=== PATIENT | female | born 2000 | race Caucasian/White ===

== ENCOUNTER → 2018-11-10 11:59 | Outpatient (CLI) | payer OTHER, SELFPAY ==
[2018-11-10 12:25] LABS: Basophils % 0.6 % (0.1-2.0); Eosinophils # 0.1 K/mm3 (0.0-0.4); Eosinophils % 0.7 % (0.1-12.0); Hematocrit 46.9 % (37.0-47.0); Hemoglobin 15.2 g/dL (12.2-16.2); Lymphocytes # 1.9 K/mm3 (0.7-4.5); Lymphocytes % 27.7 % (10-50); Mean Corpuscular HGB Conc 32.5 g/dL (31.8-35.4); Mean Corpuscular Hemoglobin 29.1 pg (27.0-31.2); Mean Corpuscular Volume 89.7 fl (81-99); Mean Platelet Volume 7.7 fl (7.4-10.4); Monocytes # 0.3 K/mm3 (0.1-1.0); Monocytes % 3.6 % (1.7-9.3); Neutrophils # 4.7 K/mm3 (1.8-7.8); Neutrophils % 67.5 % (37.0-80.0); Platelet Count 338 K/mm3 (142-424); Red Blood Count 5.23 M/mm3 (4.20-5.40); Red Cell Distribution Width 12.7 % (11.5-17.5); White Blood Count 6.9 K/mm3 (4.5-13.0)
[2018-11-10 15:34] LABS: HCG,Quantitative 1079 mIU/mL
[2018-11-12 07:20] LABS: HIV Screen 4th Generation wRfx Non Reactive (Non Reactive)
[2018-11-12 22:26] LABS: Hepatitis B Surface Antigen Negative (Negative); Hepatitis C Antibody <0.1 s/co ratio (0.0-0.9); Rapid Plasma Reagin Ab Titer Non Reactive (NonRea<1:1)
[2018-11-12 22:27] LABS: Rubella Antibodies, IgG 2.11 index (Immune >0.99)
== END ==
PROVIDERS: Visit Provider Nurse Practitioner Obstetrics & Gynecology
DX: Z34.90 Encounter for supervision of normal pregnancy, unspecified, unspecified trimester (principal)
CPT/HCPCS: 36415; 84702; 85025; 86592; 86703; 86762; 86850; 87340; 87380; G0432

== ENCOUNTER → 2018-11-16 12:44 | Outpatient (CLI) | payer OTHER, SELFPAY ==
--- NOTE | 2018-11-16 12:47 | US_ITS ---
PROCEDURE: US OB TRANSVAGINAL CLINICAL INDICATION: US OB Dates COMPARISON: No exams were available for comparison TECHNIQUE: FINDINGS: There is an intrauterine gestational sac present and a yolk sac noted but no obvious pole. It may be too early to see a pole. No adnexal mass or cul-de-sac fluid. IMPRESSION: Intrauterine gestational sac with yolk sac but no obvious pole. Suggest follow-up ultrasound and correlation with serum beta HCG Dictated by: Devang Roy MD 11/16/2018 18:05 <Electronically signed by Devang Roy MD in [facility]> 11/16/2018 18:05
[2018-11-16 15:02] LABS: HCG,Quantitative 11843 mIU/mL
== END ==
PROVIDERS: PCP Internal Medicine Adolescent Medicine; Visit Provider Nurse Practitioner Obstetrics & Gynecology
DX: O26.841 Uterine size-date discrepancy, first trimester (principal); Z34.90 Encounter for supervision of normal pregnancy, unspecified, unspecified trimester
CPT/HCPCS: 36415; 76817; 84702

== ENCOUNTER → 2018-12-08 17:21 | Outpatient (CLI) | payer OTHER, SELFPAY ==
[2018-12-13 07:07] LABS: Neisseria gonorrhoeae, NAA Negative (Negative)
== END ==
PROVIDERS: Visit Provider Nurse Practitioner Obstetrics & Gynecology
DX: Z34.90 Encounter for supervision of normal pregnancy, unspecified, unspecified trimester (principal); Z3A.08 8 weeks gestation of pregnancy
CPT/HCPCS: 87491; 87591

== ENCOUNTER → 2019-03-02 12:48 | Outpatient (CLI) | payer OTHER, SELFPAY ==
--- NOTE | 2019-03-02 12:48 | US_ITS ---
PROCEDURE: US OB /MATERNAL DETAIL CLINICAL INDICATION: US OB Complete COMPARISON: US OB TRANSVAGINAL from 11/16/2018 FINDINGS: There is a single live fetus which is in cephalic presentation. heart and body motion noted. The cervix is closed at 3 cm. Placenta is posterior and grade 1. Average appearing amount of amniotic fluid. Complete survey performed and was unremarkable on the submitted images as in PACS. No discrete anomalies identified on survey imaging by technologist. Active fetus. Three-vessel cord with satisfactory umbilical cord insertion. 4- chamber heart noted. Echogenic foci are present in the heart which are nonspecific. Survey of brain & ventricles Unremarkable. Face and neck survey unremarkable. Diaphragm and chest views unremarkable. Abdomen: Both kidneys noted and unremarkable. Stomach noted and satisfactory. Spine: Survey of the spine satisfactory with no anomalies identified nor imaged. Both arms and legs noted. Amniotic Fluid: Adequate. Maternal adnexa: No significant findings. Measurements: Average ultrasound age 20weeks 5days. Gestational Age 20 weeks 0 days Estimated due date by ultrasound age 0507/15/2019. Estimated weight 370.1ggrams. BPD = 21 weeks/0 BPD 21 weeks 0 days, OFD 21 weeks 0 days, HC 20 weeks 2 days, AC 20 weeks 6 days, FL 20 weeks 5 days, cerebellum 21 weeks 2 days, humerus 20 weeks 4 days. Heart rate is 139 beats per minute. Growth percentile is 83 percent HC/AC is 1.14 CI is 0.79 FL/BPD is 0.69 FL/AC is 0.22 IMPRESSION: Live IUP at 20 weeks 5 days in cephalic presentation. All parameters correlate with no obvious anomalies. Nonspecific echogenic foci noted in the heart. Dictated by: Devang Roy MD 03/02/2019 14:43 Electronically signed by Devang Roy MD in [facility] 03/02/2019 14:43
== END ==
PROVIDERS: PCP Nurse Practitioner Family; Visit Provider Nurse Practitioner Obstetrics & Gynecology
DX: Z36.0 Encounter for antenatal screening for chromosomal anomalies (principal)
CPT/HCPCS: 76811

== ENCOUNTER → 2019-04-20 09:55 | Outpatient (CLI) | payer OTHER, SELFPAY ==
[2019-04-20 11:02] LABS: Glucose,Fasting 91 mg/dL (60-105)
[2019-04-20 11:38] LABS: Glucose 1 Hour 153 mg/dL (74-106)
== END ==
PROVIDERS: Visit Provider Nurse Practitioner Obstetrics & Gynecology
DX: Z34.90 Encounter for supervision of normal pregnancy, unspecified, unspecified trimester (principal); Z13.1 Encounter for screening for diabetes mellitus
CPT/HCPCS: 36415; 82951

== ENCOUNTER → 2019-04-26 10:59 | Outpatient (CLI) | payer OTHER, SELFPAY ==
[2019-04-26 11:41] LABS: Glucose,Fasting 92 mg/dL (60-105)
[2019-04-26 13:22] LABS: Glucose 1 Hour 148 mg/dL (74-106)
[2019-04-26 14:04] LABS: Glucose 2 Hour 138 mg/dL (74-106)
[2019-04-26 15:19] LABS: Glucose 3 Hour 125 mg/dL (74-106)
== END ==
PROVIDERS: Visit Provider Nurse Practitioner Obstetrics & Gynecology
DX: Z34.90 Encounter for supervision of normal pregnancy, unspecified, unspecified trimester (principal)
CPT/HCPCS: 36415; 82951

== ENCOUNTER → 2019-06-06 10:10 | Outpatient (CLI) | payer OTHER, SELFPAY ==
--- NOTE | 2019-06-06 10:10 | US_ITS ---
PROCEDURE: US OB BIOPHYSICAL PROFILE CLINICAL INDICATION: SGA, Look at Baby's heart Echo gen foci TECHNIQUE: FINDINGS: The following parameters are obtained: Average ultrasound age is Average 34weeks Estimated due date by ultrasound is 07/18/2019. Estimated weight is 2,315g. This is 50th percentile BPD: 34 weeks 1 day OFD: 34 weeks 0 days HC: 34 weeks 2 days AC: 34 weeks 2 days FL: 33 weeks 5 days heart rate: 134bpm bpm. HC/AC: 1 Cephalic index: 0.79 FL/BPD: 0.77 FL/AC: 0.22 Amniotic fluid index: 11.42cm Qualitative AFV: 2 breathing movements: 2 Gross body movements: 2 Tone: 2 Biophysical profile score: 8 There was previously noted echogenic foci within the left ventricle. This is once again noted and is nonspecific. No other anomalies are demonstrated. The placenta is posterior in implantation and is grade 1. The cervix is closed and measures 4 cm transabdominal IMPRESSION: Live IUP with an average ultrasound age of 34 weeks. All parameters correlate. Biophysical profile is 8 of 8 with normal amniotic fluid index. Echogenic focus once again noted in the left ventricle nonspecific. Dictated by: Devang Roy MD 06/06/2019 13:04 Electronically signed by Devang Roy MD in [facility] 06/06/2019 13:04
== END ==
PROVIDERS: PCP Nurse Practitioner Family; Visit Provider Nurse Practitioner Obstetrics & Gynecology
DX: Z34.90 Encounter for supervision of normal pregnancy, unspecified, unspecified trimester (principal)
CPT/HCPCS: 76816; 76819

== ENCOUNTER → 2019-07-05 16:16 | Outpatient (CLI) | payer OTHER, SELFPAY | PROVIDERS: Visit Provider Nurse Practitioner Obstetrics & Gynecology | DX: Z34.90 Encounter for supervision of normal pregnancy, unspecified, unspecified trimester (principal) | CPT/HCPCS: 86403 ==

== ENCOUNTER 2019-07-06 02:21 | Outpatient (CLI) | payer OTHER, SELFPAY ==
[2019-07-06 02:48] VITALS: BMI 22.8
[2019-07-06 02:51] VITALS: BP 125/90; PULSE 101; RESP 18; TEMP 36.7; O2SAT 96; BMI 22.8
[2019-07-06 02:54] LABS: Microscopic, Urine URINE MICROSCOPIC (MICROSCOPIC)
[2019-07-06 02:58] LABS: Appearance,Urine CLEAR (Clear); Blood, Urine 1+ (Negative); Color,Urine YELLOW (Yellow); Glucose,Urine (UA) Negative (Negative); Ketones,Urine TRACE (Negative); Leukocyte Esterase,Urine Negative (Negative); Nitrate,Urine Negative (Negative); Protein,Urine 1+ (Negative); Specific Gravity, Urine >= 1.030 (1.005-1.030); Urobilinogen,Urine 0.2 EU/dl (0.2)
[2019-07-06 03:06] LABS: Fetal Membrane Rupture (Rapid) Negative (Negative)
[2019-07-06 03:09] LABS: Barbiturates Screen,Urine Negative ng/ml (<200)
[2019-07-06 03:10] LABS: Benzodiazepines Screen,Urine Negative ng/ml (<200)
[2019-07-06 03:11] LABS: Amphetamine/Metha Screen,Urine Negative ng/ml (<1000); Cocaine Screen,Urine Negative ng/ml (<300)
[2019-07-06 03:12] LABS: Methadone Screen,Urine Negative ng/ml (<300)
[2019-07-06 03:13] LABS: Cannabinoid Screen,Urine Negative ng/ml (<50); Phencyclidine Screen,Urine Negative ng/ml (<25)
[2019-07-06 03:14] LABS: Opiate Screen,Urine Negative ng/ml (<300)
[2019-07-06 03:18] LABS: Bilirubin,Urine Negative (Negative)
[2019-07-06 03:19] LABS: Bacteria,Urine 1+ /lpf; Calcium Oxalate Crystals,Urine 1+ /lpf; Mucus,Urine 1+ /lpf
== END 2019-07-06 04:11 | disposition home or self-care (01) ==
LOC: OBOUT 02:23 → OB 02:30
PROVIDERS: PCP Nurse Practitioner Family; Visit Provider Nurse Practitioner Obstetrics & Gynecology
DX: O60.03 Preterm labor without delivery, third trimester (principal); Z3A.38 38 weeks gestation of pregnancy
CPT/HCPCS: 59025; 80305; 81001; 84112; 96360; 96365; G0463

== ENCOUNTER 2019-07-06 08:18 | Outpatient (CLI) | payer OTHER, SELFPAY ==
[2019-07-06 08:27] VITALS: BMI 23.2
[2019-07-06 08:54] VITALS: BP 124/81; PULSE 79; RESP 20; TEMP 36.8; O2SAT 100; BMI 23.2
--- NOTE | 2019-07-06 09:59 | HMH.ACPN2 ---
Internal Medicine - PN: Subj *Date: 07/06/19 *Time: 09:59 Interval history: She complains of some irregular contractions. They are coming every 5 to 6 minutes. They are quite painful. She was in last night with the same thing. She actually had thought her membranes had ruptured. AmniSure at that time was negative. Her nonstress test is reactive and she is having fairly strong irregular contractions. Exam Vital signs and Labs for Last 24 Hours: Temp Pulse Resp BP Pulse Ox 98.3 F 79 20 124/81 100 07/06/19 08:54 07/06/19 08:54 07/06/19 08:54 07/06/19 08:54 07/06/19 08:54 I & O for Last 24 hours: Intake & Output 07/03/19 07/04/19 07/05/19 07/06/19 11:59 11:59 11:59 11:59 Weight 127 lb - *Routine HEENT Exam Head: Present: normocephalic Eye: Present: EOMI, PERRL ENT: Present: mucous membranes moist Assessment and Plan (1) False labor after 37 completed weeks of gestation Current visit: Yes Status: Acute Category: Medical Code(s): O47.1 - False labor at or after 37 completed weeks of gestation - Assessment and plan all Dx Assessment and Plan for all problems:: She is having contractions every 5 to 6 minutes. They are quite strong. She is quite uncomfortable. Her nonstress test is reactive. Her cervix is 2 cm 75% and station -2. This has not changed. We will go ahead and give her some fluids as well as Brethine. We will also give her a shot of Stadol to help with her discomfort. We will plan to send her home later this morning.
== END 2019-07-06 10:28 | disposition home or self-care (01) ==
LOC: RAD 08:19 → OB 08:19
PROVIDERS: PCP Nurse Practitioner Family; Visit Provider Nurse Practitioner Obstetrics & Gynecology
DX: O60.03 Preterm labor without delivery, third trimester (principal); Z3A.38 38 weeks gestation of pregnancy
CPT/HCPCS: 59025; 96365; 96367; 96372; G0463; J0595

== ENCOUNTER 2019-07-07 06:05 | Outpatient (CLI) | payer OTHER, SELFPAY ==
[2019-07-07 06:10] VITALS: BP 129/89; PULSE 88; RESP 18; TEMP 36.7; O2SAT 100; BMI 23.0
[2019-07-07 06:14] VITALS: BMI 22.8
[2019-07-07 06:56] LABS: Microscopic, Urine URINE MICROSCOPIC (MICROSCOPIC)
[2019-07-07 07:02] LABS: Appearance,Urine CLEAR (Clear); Bilirubin,Urine Negative (Negative); Blood, Urine 2+ (Negative); Color,Urine YELLOW (Yellow); Glucose,Urine (UA) Negative (Negative); Ketones,Urine Negative (Negative); Leukocyte Esterase,Urine Negative (Negative); Nitrate,Urine Negative (Negative); Protein,Urine TRACE (Negative); Urobilinogen,Urine 0.2 EU/dl (0.2)
[2019-07-07 07:13] LABS: Amphetamine/Metha Screen,Urine Negative ng/ml (<1000); Barbiturates Screen,Urine Negative ng/ml (<200)
[2019-07-07 07:14] LABS: Amorphous Sediment,Urine 2+ /lpf; Benzodiazepines Screen,Urine Negative ng/ml (<200); Squamous Epithelial Cell,Urine 20-50 #/hpf (0-5); WBC,Urine Occasional #/hpf (0-3)
[2019-07-07 07:15] LABS: Cannabinoid Screen,Urine Negative ng/ml (<50); Cocaine Screen,Urine Negative ng/ml (<300)
[2019-07-07 07:16] LABS: Methadone Screen,Urine Negative ng/ml (<300)
[2019-07-07 07:17] LABS: Opiate Screen,Urine Negative ng/ml (<300); Phencyclidine Screen,Urine Negative ng/ml (<25)
== END 2019-07-07 07:45 | disposition home or self-care (01) ==
LOC: OBOUT 06:06 → OB 06:07
PROVIDERS: Obstetrics & Gynecology; PCP Nurse Practitioner Family; Visit Provider Nurse Practitioner Obstetrics & Gynecology
DX: O60.03 Preterm labor without delivery, third trimester (principal)
CPT/HCPCS: 59025; 80305; 81001; 96372; G0463

== ENCOUNTER 2019-07-08 00:25 | Outpatient (CLI) | payer OTHER, SELFPAY ==
[2019-07-08 00:41] VITALS: BP 132/86; PULSE 77; RESP 18; TEMP 36.7; O2SAT 100; BMI 22.8
[2019-07-08 04:18] LABS: Amphetamine/Metha Screen,Urine Negative ng/ml (<1000)
[2019-07-08 04:19] LABS: Barbiturates Screen,Urine Negative ng/ml (<200)
[2019-07-08 04:20] LABS: Benzodiazepines Screen,Urine Negative ng/ml (<200); Cannabinoid Screen,Urine Negative ng/ml (<50)
[2019-07-08 04:21] LABS: Cocaine Screen,Urine Negative ng/ml (<300); Methadone Screen,Urine Negative ng/ml (<300)
[2019-07-08 04:22] LABS: Opiate Screen,Urine Negative ng/ml (<300)
[2019-07-08 04:23] LABS: Phencyclidine Screen,Urine Negative ng/ml (<25)
== END 2019-07-08 03:00 | disposition home or self-care (01) ==
LOC: OBOUT 00:26 → OB 00:30
PROVIDERS: PCP Nurse Practitioner Family; Visit Provider Obstetrics & Gynecology
DX: O60.03 Preterm labor without delivery, third trimester (principal)
CPT/HCPCS: 59025; 80305; 96365; 96372; G0463; J0595

== ENCOUNTER 2019-07-08 20:17 | Inpatient (IN) | payer OTHER, SELFPAY ==
[2019-07-08 19:25] VITALS: BP 143/96; PULSE 83; RESP 20; TEMP 36.9; O2SAT 100; BMI 22.8
[2019-07-08 20:01] LABS: Fetal Membrane Rupture (Rapid) Positive (Negative)
[2019-07-08 20:44] LABS: Basophils % 0.2 % (0.1-2.0); Eosinophils % 0.1 % (0.1-12.0); Hematocrit 35.7 % (37.0-47.0); Hemoglobin 11.6 g/dL (12.2-16.2); Lymphocytes # 1.5 K/mm3 (0.7-4.5); Lymphocytes % 9.1 % (10-50); Mean Corpuscular HGB Conc 32.7 g/dL (31.8-35.4); Mean Corpuscular Hemoglobin 27.9 pg (27.0-31.2); Mean Corpuscular Volume 85.6 fl (81-99); Mean Platelet Volume 11.3 fl (7.4-10.4); Monocytes # 0.6 K/mm3 (0.1-1.0); Monocytes % 3.4 % (1.7-9.3); Neutrophils # 14.1 K/mm3 (1.8-7.8); Neutrophils % 87.2 % (37.0-80.0); Platelet Count 173 K/mm3 (142-424); Red Blood Count 4.17 M/mm3 (4.20-5.40); White Blood Count 16.2 K/mm3 (4.5-13.0)
[2019-07-08 20:55] LABS: MANUAL DIFFERENTIAL MANUAL DIFFERENTIAL (MANUAL DIFF)
[2019-07-08 20:56] LABS: Eosinophils % 1 % (0-3); Lymphocytes % 10 % (10-50); Monocytes % 2 % (2-9); Neutrophils % 87 % (42-76); Platelet Estimate Normal; RBC Morphology Normal; Total Cells Counted 100; Toxic Granulation 2+
--- NOTE | 2019-07-08 22:22 | HMH.ANESCL ---
[facility] Anesthesia Checklist - Patient Identification Patient Identification: Arm Band, Verbal (Name & ) - Structural Data Admitted From: Home Planned Operative Procedure/s: Labor epidural Consent for Planned Operative Procedure(s) Verified: Yes Verified Documents: Surgical Consent, History and Physical - Chart Verification Results Verified: CBC - Additional verifications Patient : Yes Anesthesia Reactions: No - Airway Assessment C-Spine Mobility Assessed: Yes TMJ Mobility Assessed: Yes Dentition: Good Dentition - Neurological Assessment Level of Consciousness: Awake, Alert, Appropriate, Follows Commands Hx Seizures: No Numbness or tingling in extremities: No - Anesthesia Plan Anesthesia Risk discussed: Yes Anesthesia Plan: Verified ASA Class: II Anesthesia Type: Epidural [facility] History I have reviewed the patient's past medical history: Yes Medical History: Denies:: Anxiety, Asthma, Depression *Have you ever received a pneumonia vaccine?: No *Have you received a flu vaccine this season?: Yes Anesthesia experience/problems:: no prior complications Other Surgeries: Yes: No Previous Surgery. No: Amputation: No Fractures: No - *Social History Smoking Status: Former smoker Alcohol Intake: never Alcohol Intake Frequency:: other Substance Use Type: denies use, marijuana *Occupational Status:: unemployed Housing: house *Travel in the last 8 weeks: None - Psychiatric History Pschychiatric History:: Denies:: Anxiety, Depression Family Hx:: Hypertension, Thyroid Disorder Para: 0
[2019-07-09] VITALS (7 sets, daily range): BP systolic 120–143; BP diastolic 67–95; PULSE 78–91; RESP 14–18; TEMP 36.4–36.8; O2SAT 98–99
--- NOTE | 2019-07-09 00:27 | P.PN_ITS ---
Internal Medicine - PN: Subj *Date: 07/09/19 *Time: 00:27 (Please refer to the patient's office record for her full obstet rical and medical history. This 17-year-old 1, para 0, AB 0 white female presented on 07/07/2018 at approximately 1900 hrs. with spontaneous rupture of membranes at home and regular contractions. AmniSure was positive. At the time of admission, her cervix was 3 cm dilated with the presenting vertex at -2 station. She was initially treated with Stadol for contraction pain, but since then has had a labor epidural, which is working well. Her group B strep status is unknown, and so she has been placed on intravenous antibiotics during her labor. At approximately 2230 on 07/08/2019, meconium-tinged) Interval history: Continuing: Meconium-tinged fluid was noted. An internal monitor has been placed, the baby has looked good with good variability since that time. At this time her cervix is completely effaced, 7 cm, with the presenting vertex at 0 station. Because of the presence of meconium, and also because of a note in her chart that an early ultrasound showed intracardiac echogenic foci in the fetus, the on-call special education inclusion teacher (Dr. Rivera) has been notified to attend the anticipated vaginal delivery. The patient plans to breast-feed. Her blood type is O+. Her rubella titer is immune. Exam Vital signs and Labs for Last 24 Hours: Temp Pulse Resp BP Pulse Ox 98.5 F 83 20 143/96 H 100 07/08/19 19:25 07/08/19 19:25 07/08/19 19:25 07/08/19 19:25 07/08/19 19:25 Laboratory Results - last 24 hr 07/08/19 19:30: Membrane Rupture Positive A 07/08/19 20:30: WBC 16.2 H, RBC 4.17 L, Hgb 11.6 L, Hct 35.7 L, MCV 85.6, MCH 27.9, MCHC 32.7, RDW 14.0, Plt Count 173, MPV 11.3 H, Neut % (Auto) 87.2 H, Lymph % (Auto) 9.1 L, [place] % (Auto) 3.4, Eos % (Auto) 0.1, Baso % (Auto) 0.2, Neut # (Auto) 14.1 H, Lymph # (Auto) 1.5, [place] # (Auto) 0.6, Eos # (Auto) 0.0, Baso # (Auto) 0.0, Total Counted 100, Neutrophils % (Manual) 87 H, Lymphocytes % (Manual) 10, Monocytes % (Manual) 2, Eosinophils % (Manual) 1, Toxic Granulation 2+, Platelet Estimate Normal, RBC Morphology Normal 07/08/19 20:30: Blood Type O Positive, Antibody Screen Negative I & O for Last 24 hours: Intake & Output 07/06/19 07/07/19 07/08/19 07/09/19 11:59 11:59 11:59 11:59 Weight 125 lb
--- NOTE | 2019-07-09 00:48 | P.PN_ITS ---
Internal Medicine - PN: Subj *Date: 07/09/19 *Time: 00:48 (The baby continues to look good on the monitor, but her cervix is unchanged. Her contractions have become somewhat irregular, and I am going to augment with intravenous Pitocin. Meconium persists.) Exam Vital signs and Labs for Last 24 Hours: Temp Pulse Resp BP Pulse Ox 98.5 F 83 20 143/96 H 100 07/08/19 19:25 07/08/19 19:25 07/08/19 19:25 07/08/19 19:25 07/08/19 19:25 Laboratory Results - last 24 hr 07/08/19 19:30: Membrane Rupture Positive A 07/08/19 20:30: WBC 16.2 H, RBC 4.17 L, Hgb 11.6 L, Hct 35.7 L, MCV 85.6, MCH 27.9, MCHC 32.7, RDW 14.0, Plt Count 173, MPV 11.3 H, Neut % (Auto) 87.2 H, Lymph % (Auto) 9.1 L, [place] % (Auto) 3.4, Eos % (Auto) 0.1, Baso % (Auto) 0.2, Neut # (Auto) 14.1 H, Lymph # (Auto) 1.5, [place] # (Auto) 0.6, Eos # (Auto) 0.0, Baso # (Auto) 0.0, Total Counted 100, Neutrophils % (Manual) 87 H, Lymphocytes % (Manual) 10, Monocytes % (Manual) 2, Eosinophils % (Manual) 1, Toxic Granulation 2+, Platelet Estimate Normal, RBC Morphology Normal 07/08/19 20:30: Blood Type O Positive, Antibody Screen Negative I & O for Last 24 hours: Intake & Output 07/06/19 07/07/19 07/08/19 07/09/19 11:59 11:59 11:59 11:59 Weight 125 lb
--- NOTE | 2019-07-09 02:30 | HMH.ACPN2 ---
Internal Medicine - PN: Subj *Date: 07/09/19 *Time: 02:30 (Cervix now completely effaced, 8 to 9 cm, +1 station.) Exam Vital signs and Labs for Last 24 Hours: Temp Pulse Resp BP Pulse Ox 98.5 F 83 20 143/96 H 100 07/08/19 19:25 07/08/19 19:25 07/08/19 19:25 07/08/19 19:25 07/08/19 19:25 Laboratory Results - last 24 hr 07/08/19 19:30: Membrane Rupture Positive A 07/08/19 20:30: WBC 16.2 H, RBC 4.17 L, Hgb 11.6 L, Hct 35.7 L, MCV 85.6, MCH 27.9, MCHC 32.7, RDW 14.0, Plt Count 173, MPV 11.3 H, Neut % (Auto) 87.2 H, Lymph % (Auto) 9.1 L, [place] % (Auto) 3.4, Eos % (Auto) 0.1, Baso % (Auto) 0.2, Neut # (Auto) 14.1 H, Lymph # (Auto) 1.5, [place] # (Auto) 0.6, Eos # (Auto) 0.0, Baso # (Auto) 0.0, Total Counted 100, Neutrophils % (Manual) 87 H, Lymphocytes % (Manual) 10, Monocytes % (Manual) 2, Eosinophils % (Manual) 1, Toxic Granulation 2+, Platelet Estimate Normal, RBC Morphology Normal 07/08/19 20:30: Blood Type O Positive, Antibody Screen Negative I & O for Last 24 hours: Intake & Output 07/06/19 07/07/19 07/08/19 07/09/19 11:59 11:59 11:59 11:59 Weight 125 lb
--- NOTE | 2019-07-09 03:42 | HMH.ACPN2 ---
Internal Medicine - PN: Subj *Date: 07/09/19 *Time: 03:42 (Cervix now complete, complete, +2. Pushing.) Exam Vital signs and Labs for Last 24 Hours: Temp Pulse Resp BP Pulse Ox 98.5 F 83 20 143/96 H 100 07/08/19 19:25 07/08/19 19:25 07/08/19 19:25 07/08/19 19:25 07/08/19 19:25 Laboratory Results - last 24 hr 07/08/19 19:30: Membrane Rupture Positive A 07/08/19 20:30: WBC 16.2 H, RBC 4.17 L, Hgb 11.6 L, Hct 35.7 L, MCV 85.6, MCH 27.9, MCHC 32.7, RDW 14.0, Plt Count 173, MPV 11.3 H, Neut % (Auto) 87.2 H, Lymph % (Auto) 9.1 L, [place] % (Auto) 3.4, Eos % (Auto) 0.1, Baso % (Auto) 0.2, Neut # (Auto) 14.1 H, Lymph # (Auto) 1.5, [place] # (Auto) 0.6, Eos # (Auto) 0.0, Baso # (Auto) 0.0, Total Counted 100, Neutrophils % (Manual) 87 H, Lymphocytes % (Manual) 10, Monocytes % (Manual) 2, Eosinophils % (Manual) 1, Toxic Granulation 2+, Platelet Estimate Normal, RBC Morphology Normal 07/08/19 20:30: Blood Type O Positive, Antibody Screen Negative I & O for Last 24 hours: Intake & Output 07/06/19 07/07/19 07/08/19 07/09/19 11:59 11:59 11:59 11:59 Weight 125 lb
--- NOTE | 2019-07-09 04:18 | HMH.ACPN2 ---
Internal Medicine - PN: Subj *Date: 07/09/19 *Time: 04:18 (Patient was complete and pushing and was unable to push effectively baby was in an occiput posterior position; 2 attempts of forceps application and rotation were unsuccessful with appropriate pressure applied. There was no bleeding and all there were no lacerations. The baby looked good throughout on the internal monitor. Discussion with the patient and her partner about the safest way for delivery being a primary . They concur and that will be done forth with.) Exam Vital signs and Labs for Last 24 Hours: Temp Pulse Resp BP Pulse Ox 98.5 F 83 20 143/96 H 100 07/08/19 19:25 07/08/19 19:25 07/08/19 19:25 07/08/19 19:25 07/08/19 19:25 Laboratory Results - last 24 hr 07/08/19 19:30: Membrane Rupture Positive A 07/08/19 20:30: WBC 16.2 H, RBC 4.17 L, Hgb 11.6 L, Hct 35.7 L, MCV 85.6, MCH 27.9, MCHC 32.7, RDW 14.0, Plt Count 173, MPV 11.3 H, Neut % (Auto) 87.2 H, Lymph % (Auto) 9.1 L, [place] % (Auto) 3.4, Eos % (Auto) 0.1, Baso % (Auto) 0.2, Neut # (Auto) 14.1 H, Lymph # (Auto) 1.5, [place] # (Auto) 0.6, Eos # (Auto) 0.0, Baso # (Auto) 0.0, Total Counted 100, Neutrophils % (Manual) 87 H, Lymphocytes % (Manual) 10, Monocytes % (Manual) 2, Eosinophils % (Manual) 1, Toxic Granulation 2+, Platelet Estimate Normal, RBC Morphology Normal 07/08/19 20:30: Blood Type O Positive, Antibody Screen Negative I & O for Last 24 hours: Intake & Output 07/06/19 07/07/19 07/08/19 07/09/19 11:59 11:59 11:59 11:59 Weight 125 lb
[2019-07-09 05:04] LABS: Cord Blood PH 7.33 (7.35-7.45)
--- NOTE | 2019-07-09 05:19 | HMH.OPNOTE ---
Date of procedure: 07/09/19 Pre-op Diagnosis:: Term , occiput posterior, pelvic disproportion Post-op Diagnosis:: Term , occiput posterior, pelvic disproportion Procedure performed:: Primary lower segment transverse section Surgeon:: Minh Isabel MD Machine Operator Helper(s):: Dr. Winters NURSE COORDINATOR:: Kwasi Dunn Anesthesia: epidural Estimated blood loss (mL): 600 Clinical Note:: She is a 18-year-old 1 para 0 at 38 weeks gestational age. She came in with ruptured membranes on the evening of July 08, 2019. She was found to be 3 cm dilated. She subsequently progressed to full dilation overnight. She attempted to push out the baby but it was in the direct OP position. She was managed by Dr. Winters. He attempted to place forceps and rotate the baby but was unable to do so. The baby also did not descend with a gentle pull. As result of that he elected to perform a primary lower segment transverse section. He called me since I am the attending physician for this patient to come and help him with a . I elected to be the primary surgeon. The risks and benefits of surgery discussed with the patient prior to surgery by Dr. Winters. Operative findings:: The baby was in the LOP position. There was a cord around the baby shoulder. The baby was a liveborn male child with Apgars of 3 at 1 minute 5 at 5 minutes 7 at 10 minutes. pH is currently pending. Baby was born at 4:54 AM on the morning of July 09, 2019. Ovaries and tubes appeared normal. Operative note:: She was taken to the operating room where epidural anesthesia was found be adequate. She was prepped and draped in normal sterile fashion in the supine position with a leftward tilt. A Reyna catheter was in the bladder. A Pfannenstiel skin incision was made with knife then carried through to the underlying layer of fascia with cautery. The fascia was opened in the midline with cautery and extended laterally using Carcamo scissors. [place] clamps were applied to the superior aspect of the fascial incision which was tented up and the underlying rectus muscles dissected off using cautery. The Samuel clamps were then applied to the inferior aspect of the fascial incision which in a similar fashion was tented up and the underlying rectus muscles dissected off using cautery. The rectus muscles were then in the midline, the peritoneum identified, and entered sharply with Metzenbaum scissors. This incision was then extended superiorly and inferiorly with cautery. We had good visualization of the bladder inferiorly. The bladder peritoneum was then opened in the midline and extended laterally using Metzenbaum scissors. A bladder flap was created digitally. Transverse incision was made through the uterine muscle to the amnion. This incision was then extended laterally using fingers traction. The amnion was entered sharply with knife. There was clear amniotic fluid. The 's head was then delivered atraumatically. A loose nuchal cord was then reduced. This was followed by the anterior shoulder and the rest of the 's body atraumatically. The oropharynx and nasopharynx were bulb suctioned. The infant was then handed off to Dr. Rivera who assigned Apgars of 3 at 1 minute and 5 at 5 minutes and 7 at 10 minutes. We then obtained cord blood as well as cord pH. Using gentle traction on the cord and countertraction on the fundus I was able to easily deliver the placenta intact. It had a normal three-vessel cord. The uterus was then cleared of clots and debris . The uterine incision was then closed using running 0 Vicryl suture in a locked fashion. A second layer of the same suture was used to imbricate the first layer. The bladder peritoneum was then closed using running 2-0 Vicryl suture in a locked fashion. The gutters and cul-de-sac were then cleared of clots and debris . Once again hemostasis was assured. The peritoneum was grasped with
--- NOTE | 2019-07-09 05:31 | HMH.ANESI ---
[facility] Anesthesia Record Part I Intake, IV Amount: 700 Estimated blood loss (mL): 600 Urine output (mL): 700 Blood Products used (#): none Blood Pressure: 134/89 SaO2: 98 Pulse Rate: 85 Respiratory Rate: 14 Temperature: 97.5 F Patient is:: Awake, Stable Stable to PACU at:: 05:22
--- NOTE | 2019-07-09 06:11 | SUR.OPER ---
0454- live born male delivered apgars are- 3 @ 5 min 5 @ 10 min 7 @ 15 min
--- NOTE | 2019-07-09 08:38 | HMH.PHAVTE ---
[facility] Pharmacy VTE Monitoring - Patient Demographics Admission date: 07/08/19 Report Date: 07/09/19 Time: 08:38 Allergies/Adverse Reactions: Patient Allergies No Known Allergies Allergy (Verified 07/05/19 14:53) Height: 1.57 m Weight: 56.699 kg - VTE Risk Labs: VTE Related Lab Results Hgb 11.6 g/dL (12.2-16.2) L 07/08/19 20:30 Hct 35.7 % (37.0-47.0) L 07/08/19 20:30 Plt Count 173 K/mm3 (142-424) 07/08/19 20:30 - Prophylaxis VTE Prophylaxis Ordered?: Yes Types of VTE Prophylaxis: IPCS Thigh High Location of Applied Device: Bilateral Lower Extremeties - VTE Diagnosis Confirmed Treatment or plan recommended: Continue Current Treatment
[2019-07-10 07:08] LABS: Hematocrit 28.8 % (37.0-47.0)
--- NOTE | 2019-07-10 07:23 | HMH.ANESII ---
[facility] Anesthesia Record Part II Discharge Time: 07:00 Destination: Obstetric PACU nurse assessment reviewed?: Yes Patient Condition:: Good Anesthesia Complications:: None Swallowing reflex intact?: Yes Cyanosis?: No Blood Pressure: 140/95 Pulse Rate: 78 Temperature: 97.9 F Mental Status: Alert & Oriented Pain level:: 2 Nausea and/or vomitting:: None Intake, IV Amount: 0
[2019-07-10 07:25] VITALS: BP 140/95; PULSE 78; TEMP 36.6
[2019-07-10 08:21] VITALS: BP 131/86; PULSE 91; RESP 18; TEMP 36.6; O2SAT 100
--- NOTE | 2019-07-10 09:21 | HMH.ACPN2 ---
Internal Medicine - PN: Subj *Date: 07/10/19 *Time: 09:21 Interval history: She is doing well today. Her pain is slightly increased. We will increase her oxycodone. She is breast-feeding. Her lochia is normal. Exam Vital signs and Labs for Last 24 Hours: Temp Pulse Resp BP Pulse Ox 97.9 F 78 18 140/95 H 99 07/10/19 07:25 07/10/19 07:25 07/09/19 16:45 07/10/19 07:25 07/09/19 16:45 Laboratory Results - last 24 hr 07/10/19 05:45: Hgb 9.0 L, Hct 28.8 L I & O for Last 24 hours: Intake & Output 07/07/19 07/08/19 07/09/19 07/10/19 11:59 11:59 11:59 11:59 Intake Total 875 / 875 0 / 0 Output Total 1250 / 1250 Balance -375 / -375 0 / 0 Weight 125 lb - Constitutional no acute distress - *Routine HEENT Exam Head: Present: normocephalic Eye: Present: EOMI, PERRL ENT: Present: mucous membranes moist Assessment and Plan (1) pelvic disproportion delivered Current visit: Yes Status: Acute Category: Medical Code(s): O33.9 - Maternal care for disproportion, unspecified - Assessment and plan all Dx Assessment and Plan for all problems:: She is doing well 24 hours post . She has more pain and so we will give her some extra oxycodone as breakthrough. She will also continue with Motrin. We will plan to send her home in 48 hours.
[2019-07-10 12:18] VITALS: BP 122/83; PULSE 90; TEMP 37.3
--- NOTE | 2019-07-10 14:47 | SW/DCPLANNER ---
RECEIVED REFERRAL FOR THIS PATIENT FOR LATE CARE: PATIENT PRESENTED INTO THE HOSPITAL AND DELIVERED A LIVE BORN FEMALE VAGINALLY, BOTH INFANT AND PATIENT ARE DOING WELL. PATIENT RESIDES WITH HER MOTHER WHOM IS AT BEDSIDE. SHE STATED SHE IS GOING TO BREASTFEED FOR A SHORT AMOUNT OF TIME AND WISHES TO SWITCH OVER TO BOTTLE, SHE STATED SHE GETS WIC SERVICES AND HAS CHOSEN DR KELLY HAS THE INFANTS DOCTOR. SHE NAMED HER PIPER EMIGDIO SEAMAN AND THERE IS A FATHER INVOLVED WHOM THE PATIENT WAS FACE TIMING DURING MY VISIT... PATIENT STATES HER MOTHER WILL BE ASSISTING WITH THE CARE OF THE INFANT, SHE HAS BOTTLES, DIAPERS, CARESEAT AND BASSINET AND CRIB ALSO..I TOLD HER THE LOCAL FIRE DEPT DOES CARESEAT SAFETY CHECKS AND IT IS FREE AND NOT APPT NECESSARY. I ENCOURAGED HER TO TAKE THE INFANT DOWN TO THE FIRE DEPT WHEN DISCHARGED TO HAVE THE SEAT AND STRAPS CHECKED BEFORE GOING HOME.. HER ANTICIPATED DISCHARGE IS WED PENDING NO SETBACK FOR HER OR THE ... I EXPLAINED THAT I WOULD BE AVAILABLE TO ASSIST WITH ANY QUESTIONS OR CONCERNS SHE MAY HAVE BEFORE SHE DISCHARGES...
[2019-07-10 16:27] VITALS: BP 131/99; PULSE 99; RESP 18; TEMP 37; O2SAT 99
--- NOTE | 2019-07-11 06:57 | SW/DCPLANNER ---
RECEIVED REFERRAL FOR THIS PATIENT STATING SHE HAD A POSITIVE FOR THC ON 01/05/19... PATIENT PRESENTED INTO THE HOSPITAL AND DELIVERED A LIVE BORN MALE VIA . THIS IS HER FIRST AND SHE NAMED HER BABY SMITHA ALANIZ. SHE STATED SHE IS BUT IS GOING TO SWITCH OVER TO BOTTLE SOON. SHE HAS CHOSEN DR AUSTIN THE INFANTS DOCTOR. SHE RESIDES WITH HER MOTHER BUT THE BABYS FATHER HAS A HOUSE HE JUST BOUGHT AND THEY WILL SOON BE MOVING IN WITH HIM ONCE HE CAN GET THE HOUSE CLOSED AND IN HIS NAME. SHE USES HANDS AND RECEIVES WIC SERVICES. BABY'S FATHER AT BEDSIDE AND IS GAINFULLY EMPLOYED AND STATE THEY HAVE EVERYTHING THEY NEED. CARSEAT IS NEW AND IN THE CAR, DIAPERS, CLOTHES AND BABY BED READY TO TAKE HIM HOME.. IT DOESN'T APPEAR SHE HAS ANY DRUG OR ETOH ISSUES TO BE ADDRESSED. ANTICIPATED DISCHARGE IS FOR WED.. I HAVE SHARED INFORMATION TO THEM ABOUT THE FIRE DEPT AND CARSEAT SAFETY CHECK AND THEY ARE INTERESTED..
[2019-07-11 08:00] VITALS: BP 128/88; PULSE 94; RESP 18; TEMP 36.7; O2SAT 99
--- NOTE | 2019-07-11 08:30 | HMH.ACPN2 ---
Internal Medicine - PN: Subj *Date: 07/11/19 *Time: 08:30 Interval history: She is doing well today. She is eating and drinking and ambulating. She is breast-feeding. Her lochia is normal. Her pain is reasonably well controlled. Exam Vital signs and Labs for Last 24 Hours: Temp Pulse Resp BP Pulse Ox 98.6 F 99 H 18 131/99 H 99 07/10/19 16:27 07/10/19 16:27 07/10/19 16:27 07/10/19 16:27 07/10/19 16:27 I & O for Last 24 hours: Intake & Output 07/08/19 07/09/19 07/10/19 07/11/19 11:59 11:59 11:59 11:59 Intake Total 875 / 875 0 / 0 Output Total 1250 / 1250 Balance -375 / -375 0 / 0 Weight 125 lb - Constitutional no acute distress - *Routine HEENT Exam Head: Present: normocephalic Eye: Present: EOMI, PERRL ENT: Present: mucous membranes moist Assessment and Plan (1) pelvic disproportion delivered Current visit: Yes Status: Acute Category: Medical Code(s): O33.9 - Maternal care for disproportion, unspecified (2) delivery delivered Current visit: Yes Status: Acute Category: Medical Code(s): O82 - Encounter for delivery without indication - Assessment and plan all Dx Assessment and Plan for all problems:: She is doing well this morning. We will plan to send her home tomorrow.
[2019-07-11 12:00] VITALS: BP 120/83; PULSE 82; RESP 18; TEMP 37.1; O2SAT 99
[2019-07-11 16:00] VITALS: BP 148/85; PULSE 82; RESP 18; TEMP 36.7; O2SAT 97
[2019-07-12 08:00] VITALS: BP 125/90; PULSE 83; RESP 18; TEMP 36.8; O2SAT 98
--- NOTE | 2019-07-12 09:11 | HMH.DCSUM ---
General - General Admission date:: 07/08/19 Discharge date: 07/12/19 HPI HPI: She is a 18-year-old 1 para 0 at 38+ weeks gestational age. She came in with ruptured membranes and early labor. Hospital Course Hospital Course: She progressed to full dilation under labor epidural and began pushing. The baby's head was still quite high. The baby was in the OP position and Dr. Winters attempted to rotate the baby's head with forceps and unfortunately the baby's head did not come out. As result of that an emergent was called. She delivered a liveborn male child at 4:54 AM on the morning of July 09, 2019. The baby weighed 6 pounds 15 ounces and was 19-1/2 inches long. He had Apgars of 3 at 1 minute 5 at 5 minutes and 7 at 10 minutes. She has done well and has remained afebrile throughout her hospitalization. She is eating and drinking and ambulating. She is breast-feeding. Her lochia is normal. She has O+ blood, she is rubella immune and was group B streptococcus negative. Her athletic monitor is Dr. Alvarenga. She is discharged home to follow-up with me in approximately 2 weeks time. She will continue with her vitamins and iron. She was given a prescription for Percocet 5/325 number 20 tablets. She will also take ibuprofen. She was given the usual instructions with respect to limiting her activity, driving and sexual activity. Rhogam Administration: Not Indicated Objective Vital signs: Temp Pulse Resp BP Pulse Ox 98.2 F 83 18 125/90 98 07/12/19 08:00 07/12/19 08:00 07/12/19 08:00 07/12/19 08:00 07/12/19 08:00 no acute distress - *Routine HEENT Exam Head: Present: normocephalic Eye: Present: EOMI, PERRL ENT: Present: mucous membranes moist - *Routine Neck Exam Present: supple - *Routine Respiratory Exam Present: CTA bilaterally - *Routine Cardiovascular Exam Present: RRR - *Routine Abdominal Exam Present: soft, normoactive bowel sounds. Absent: tenderness - *Routine Extremities Exam Absent: cyanosis, clubbing, edema - *Routine Skin Exam Present: warm. Absent: rash - Detailed Eye Exam Eyelids: Bilateral normal inspection DS: Diagnosis - Discharge Diagnosis (1) pelvic disproportion delivered Status: Acute (2) delivery delivered Status: Acute Discharge Plan - Patient Discharge Instructions ACTIVITY: No heavy lifting DIET: continue same diet Additional Instructions: nothing in the vagina for 6 weeks, no heavy lifting or strenuous activity. Patient Instructions: Depression, Hemorrhage, DI for , DI for Pre-eclampsia, DI for Surgical Site Infection, DI for Postoperative Pain, Preventing the Spread of Coronavirus Discharge Instructions - Follow up Plan Follow up with: Minh Isabel MD [Staff Physician] - 07/25/19 11:00 am Disposition: Home, Self-Residential Medications: Home Medications Medication Instructions Recorded Confirmed Type prenat.vits,bartolome,uny-jzye-bgvnc 1 tab PO DAILY 11/24/18 07/09/19 History Promethazine HCl [Phenergan 25mg 25 mg PO Q6H PRN 4 Days #15 tab 12/31/18 07/09/19 Rx tab] Famotidine [Acid [facility]] 20 mg PO BID 07/09/19 07/09/19 History Ferrous Sulfate [Ferrous Sulfate 325 mg PO DAILY 07/09/19 07/09/19 History 325mg Tablet] Oxycodone HCl/Acetaminophen 1 - 2 tab PO Q6 PRN #20 tablet 07/12/19 Rx [Percocet 5/325mg tablet] Prescriptions/Medication Reconciliation: New Oxycodone HCl/Acetaminophen [Percocet 5/325mg tablet] 1 - 2 tab PO Q6 PRN #20 tablet PRN Reason: Severe Pain Continued prenat.vits,bartolome,jek-vymj-nqxyo 1 tab PO DAILY Promethazine HCl [Phenergan 25mg tab] 25 mg PO Q6H PRN 4 Days #15 tab PRN Reason: Nausea And Vomiting Ferrous Sulfate [Ferrous Sulfate 325mg Tablet] 325 mg PO DAILY Famotidine [Acid Well [employer] Worker] 20 mg PO BID - Problem Reconciliation Problems Reviewed?: Y
== END 2019-07-12 14:35 | disposition home or self-care (01) | DRG 788 ==
LOC: OBOUT 20:18 → OB 20:18
PROVIDERS: Admitting Provider Nurse Practitioner Obstetrics & Gynecology; PCP Nurse Practitioner Family; Visit Provider Obstetrics & Gynecology
PROC: 10D00Z1 Extraction of Products of Conception, Low, Open Approach (ICD-10-PCS; CPT 59514; principal; 2019-07-09 04:30)
DX: O64.0XX0 Obstructed labor due to incomplete rotation of fetal head, not applicable or unspecified (principal); Z3A.38 38 weeks gestation of pregnancy; Z37.0 Single live birth
CPT/HCPCS: 59514; 59025; 80305; 81001; 82800; 84112; 85007; 85014; 85018; 85025; 86403; 86850; 96360; 96365; 96367; 96372; C1758; G0463; J0290; J0595; J2405

== ENCOUNTER 2020-05-04 19:32 | Emergency (ER) | payer OTHER, SELFPAY ==
[2020-05-04 19:48] VITALS: BP 123/81; PULSE 76; RESP 18; TEMP 37.1; O2SAT 99; BMI 18.1
--- NOTE | 2020-05-04 20:23 | HMH.EDUTC ---
[facility] [place] Clinical Impression: Laceration Disposition: Home, Self-Care Condition on Discharge: Good Instructions: How to Care for a Laceration After Repair, Laceration Repair Additional Instructions: Suture/Staple instructions: You have required stitches or [place] today. Please read the following instructions so you know how to care for them: 1. Keep wound area dry for the first 24 hours. 2 May clean gently with mild soap and water, after 48 hours to prevent crusting over suture knots. 3. You may shower if your provider gives permission but do not take a bath until the skin is healed.. 4. Never leave a wet dressing or Band-Aid on your stitches as this allows bacteria to reach the area and may cause infection. Band-aids can cause the wound to sweat and not recommended to wear for long periods of time Watch for signs of infection: Increasing redness, tenderness or warmth around the suture site Unusual swelling around the site Appearance of pus around each suture or any red streaks Fever If you develop any of the above signs or symptoms of infection, Follow up with Family Physician immediately 5. Suture removal in __7-10__days 6. Return to [facility] or follow up with family doctor for removal. This can be done by any medical provider during regular hours on Wednesday through Wednesday, by appointment. Referrals: Alisa Casas [Primary Care Provider] - As needed Time of Disposition: 21:09 Medical Decision Making - Jaswinder Inquiry Pt receiving controlled substance: No Jaswinder was queried for this patient: No Vital Signs: 05/04/20 19:48 05/04/20 21:11 Temperature 98.7 F 98.7 F Temperature Source Oral Pulse Rate 76 Pulse Rate [Right Radial] 76 Respiratory Rate 18 18 Blood Pressure 123/81 Blood Pressure [Right Arm] 123/81 Blood Pressure Mean [Right Arm] 95 Blood Pressure Position [Right Arm] Sitting 02 Sat by Pulse Oximetry 99 Medical Decision Narrative: Patient reports last tetanus shot about 3 yrs ago wound edges approximated well bandage placed and placed in finger splint [facility] [place] - General Stated complaint: cut to left thumb Time Seen by Provider: 05/04/20 20:23 Mode of Arrival: Family Vehicle Source of Information: Patient Limitations: No Limitations Description of Symptoms (Recalled from Triage Doc. by RN): PT CUT LEFT THUMB ON KNUCKLE TRYING TO OPEN A BOTTLE WITH A KNIFE @ 1820 HEENT Symptoms (Recalled from RN notes): No Resp Symptoms (Recalled from RN notes): No Skin Symptoms (Recalled from RN notes): Yes MS Symptoms (Recalled from RN notes): No Functional Status (Recalled from RN notes): WML - History of Present Illness Provider Complaint: Patient states that she was trying to open a bottle with a knife when the knife slipped and cut her on her left thumb around the knuckle area States that she immediately cleaned it wrapped it and looked at it and noticed that she thought it may need stitches so she came in - Related Data Home Medications Medication Instructions Recorded Confirmed etonogestrel 68 mg subdermal SUBDERMAL 12/12/19 01/23/20 implant Previous Rx's Medication Instructions Recorded citalopram 20 mg tablet 20 mg PO DAILY #30 tab 08/28/19 estradiol 2 mg tablet 2 mg PO DAILY #30 tab 12/12/19 Allergies Allergy/AdvReac Type Severity Reaction Status Date / Time No Known Allergies Allergy Verified 01/23/20 09:01 - Worker's Comp Is this a Worker's Comp case?: No Is this an H Worker's Comp?: No [facility] History - Hepatitis A Screen Drug use history?: No High risk sexual behaviors?: No History of sexually transmitted infection?: No Currently employed?: No Childcare worker?: No Do you have indoor plumbing?: Yes Do you have electricity?: Yes Attestation statement:: This patient has been screened for Hepatitis A risk factors. I have reviewed the patient's past medical history: Yes Medical History: Reports:: Aneurysm Denies:: Anxiety, Asthma, Depression
[2020-05-04 21:11] VITALS: BP 123/81; PULSE 76; RESP 18; TEMP 37.1; O2SAT 99
== END 2020-05-04 21:20 | disposition home or self-care (01) ==
PROVIDERS: Emergency Provider Nurse Practitioner; PCP Nurse Practitioner Family
DX: S61.012A Laceration without foreign body of left thumb without damage to nail, initial encounter (principal); W26.0XXA Contact with knife, initial encounter; Y92.89 Other specified places as the place of occurrence of the external cause
CPT/HCPCS: 12001; 99202; G0463

== ENCOUNTER 2020-05-14 11:41 | Emergency (ER) | payer OTHER, SELFPAY ==
[2020-05-14 11:56] VITALS: BP 109/69; PULSE 83; RESP 19; TEMP 36.6; O2SAT 99; BMI 18.1
[2020-05-14 11:58] VITALS: BP 112/71; PULSE 80; RESP 18; TEMP 36.6
== END 2020-05-14 11:59 | disposition home or self-care (01) ==
LOC: UTC 12:14
PROVIDERS: Emergency Provider Nurse Practitioner; PCP Nurse Practitioner Family
DX: S61.012D Laceration without foreign body of left thumb without damage to nail, subsequent encounter (principal)

== ENCOUNTER 2020-08-03 10:28 | Emergency (ER) | payer BC, SELFPAY ==
[2020-08-03 10:29] VITALS: BP 129/79; PULSE 64; RESP 16; TEMP 36.6; O2SAT 97; BMI 18.5
--- NOTE | 2020-08-03 10:35 | HMH.EDGENADL ---
ED Disposition Clinical Impression: Gastritis Qualifiers: Gastritis type: unspecified gastritis Chronicity: acute Gastritis bleeding: without bleeding Qualified Code(s): K29.00 - Acute gastritis without bleeding Disposition: Home, Self-Care Condition on Discharge: Good Additional Instructions: Soft, bland diet for the next 24 hours. Zofran as needed. Stay well-hydrated by drinking water or a sports drink. Avoid sweet tea, coffee, soft drinks, alcohol. Referrals: Alisa Casas [Primary Care Provider] - 3 days Time of Disposition: 11:51 - Critical Care Critical Care Time: No Attestation: On , the high probability of a clinically significant, sudden or life threatening deterioration of the following system(s) required my full and direct attention, intervention and personal management. The time I documented below is in addition to time spent performing reported procedures but includes the following listed in this critical care notation. Medical Decision Making - Medical Records Medical records reviewed: Yes: I reviewed the patient's medical records. - Jaswinder Inquiry Pt receiving controlled substance: No Vital Signs: 08/03/20 10:29 Temperature 98 F Temperature Source Oral Pulse Rate [Radial] 64 Respiratory Rate 16 Blood Pressure [Right Radial Artery] 129/79 Blood Pressure Mean [Right Radial Artery] 95 Blood Pressure Position [Right Radial Artery] Sitting 02 Sat by Pulse Oximetry 97 Oxygen Delivery Method Room Air - Lab Data Lab results reviewed: Yes: I reviewed the patient's lab results. Lab Results 08/03/20 10:35: Urine Color Yellow, Urine Appearance Clear, Urine pH 6.0, Ur Specific [place] >= 1.030, Urine Protein 1+, Urine Glucose (UA) Negative, Urine Ketones 3+, Urine Blood Negative, Urine Nitrate Negative, Urine Bilirubin 1+ A, Urine Urobilinogen 0.2, Ur Leukocyte Esterase Negative, Urine RBC 3-5, Urine WBC 3-5, Ur Squamous Epith Cells 3-5 08/03/20 10:35: Urine HCG, Qual Negative 08/03/20 11:05: Sodium 140, Potassium 4.0, Chloride 105, Carbon Dioxide 24, Anion Gap 15.0, BUN 18 H, Creatinine 0.70, Estimated Creat Clear 89, Estimated GFR 106, Est GFR ( Amer) 128, Glucose 92, Calcium 9.4, Total Bilirubin 1.8 H, AST 38 H, ALT 57, Alkaline Phosphatase 98, Total Protein 8.5 H, Albumin 5.4 H, Globulin 3.1, Albumin/Globulin Ratio 1.7 Result diagrams: 08/03/20 11:05 Orders (Tests/Meds): ED MEDICATIONS Generic Name Dose Route Start Last Admin Trade Name Freq PRN Reason Stop Dose Admin Lactated Ringer's 1,000 mls @ 999 mls/hr 08/03/20 11:00 08/03/20 11:01 Lactated Ringer's 1000 Ml Bag IV 08/03/20 12:00 999 mls/hr .Q1H1M RENETTA Administration Discontinued Medications Generic Name Dose Route Start Last Admin Trade Name Freq PRN Reason Stop Dose Admin Ondansetron HCl 4 mg 08/03/20 10:50 08/03/20 11:00 Ondansetron 4mg/2ml Vial IV 08/03/20 10:51 4 mg ONCE ONE Administration Medical Decision Narrative: 19yo F evaluated for nausea and vomiting. Patient no acute distress on initial evaluation. Her physical exam is completely benign. Metabolic panel, UA, urine are ordered. We will treat the patient with 1 L of IV fluids and Zofran. Patient labs are unremarkable except for mild bump in total bili at 1.8. Discussed all findings with patient at bedside. Urinalysis is negative except for few ketones, not . Given the patient's abdominal exam is completely benign, not terribly worried about her slight increase in total bili. Patient reports she is feeling much better at this time. She is appropriate stable for discharge home. Will provide prescription for Zofran. Counseled on slow return to normal p.o. habits. Encouraged to follow-up with her PCP in 3 to 4 days for further evaluation. General Adult HPI - General Stated complaint: vomiting Time Seen by Provider: 08/03/20 10:35 Mode of Arrival: Ambulatory - History of Present Illness HPI narrative: 19yo
[2020-08-03 10:50] LABS: Microscopic, Urine URINE MICROSCOPIC (MICROSCOPIC)
[2020-08-03 10:52] LABS: Appearance,Urine CLEAR (Clear); Blood, Urine Negative (Negative); Color,Urine YELLOW (Yellow); Glucose,Urine (UA) Negative (Negative); Ketones,Urine 3+ (Negative); Leukocyte Esterase,Urine Negative (Negative); Nitrate,Urine Negative (Negative); Protein,Urine 1+ (Negative); Specific Gravity, Urine >= 1.030 (1.005-1.030); Urobilinogen,Urine 0.2 EU/dl (0.2)
[2020-08-03 10:53] LABS: Urine Pregnancy, HCG Qual. Negative (Negative)
[2020-08-03 11:01] LABS: Bilirubin,Urine 1+ (Negative)
[2020-08-03 11:24] LABS: Alanine Aminotransferase 57 U/L (12-78); Albumin Level 5.4 g/dl (3.5-5.0); Albumin/Globulin Ratio 1.7 (1.1-1.8); Alkaline Phosphatase 98 U/L (38-126); Aspartate Amino Transferase 38 U/L (14-36); Bilirubin,Total 1.8 mg/dl (0.2-1.3); Blood Urea Nitrogen 18 mg/dl (7-17); Calcium 9.4 mg/dl (8.4-10.2); Carbon Dioxide 24 mmol/L (22.0-30.0); Chloride 105 mmol/L (98-107); Creatinine Clearance Estimated 89 mL/min (50-200); Estimated Glomerular Filt Rate 106 ml/min (>60); GFR (African American) 128 ML/MIN (>60); Globulin 3.1 g/dL (1.3-3.2); Glucose 92 mg/dl (74-100); Sodium 140 mmol/L (136-145); Total Protein,Serum 8.5 g/dl (6.3-8.2)
[2020-08-03 12:00] VITALS: BP 135/68; PULSE 68; RESP 16; TEMP 36.6; O2SAT 97
== END 2020-08-03 12:02 | disposition home or self-care (01) ==
PROVIDERS: Emergency Provider Family Medicine; PCP Nurse Practitioner Family
DX: K29.00 Acute gastritis without bleeding (principal); F17.290 Nicotine dependence, other tobacco product, uncomplicated
CPT/HCPCS: 80053; 81001; 81025; 96365; 96375; 99282; J2405

== ENCOUNTER → 2020-08-28 07:50 | Outpatient (CLI) | payer BC, SELFPAY ==
--- NOTE | 2020-08-28 07:53 | US_ITS ---
PROCEDURE: US ABDOMEN COMPLETE CLINICAL INDICATION: ABN LIVER FUNCTION COMPARISON: No exams were available for comparison FINDINGS: PANCREAS: Unremarkable. No obvious mass or abnormal fluid collection. No ductal dilatation LIVER: No focal liver lesions demonstrated. Homogeneous echogenicity. No intrahepatic biliary ductal dilatation evident. There is appropriate direction of blood flow within a non dilated portal vein RIGHT KIDNEY: Unremarkable. Normal size and echogenicity. No hydronephrosis LEFT KIDNEY: Unremarkable. Normal size and echogenicity. No hydronephrosis GALLBLADDER: No gallstones, gallbladder wall thickening, pericholecystic fluid, or biliary dilatation. Common bile duct measures 2 mm. AORTA: No evidence of aneurysmal dilatation. SPLEEN: Unremarkable. Normal size and echogenicity ASCITES: None demonstrated. IMPRESSION: No acute findings. No cholelithiasis or bile duct dilatation. Dictated by: Delroy Lopez MD 08/28/2020 09:18 Delroy Lopez MD in [place] 08/28/2020 09:18
--- NOTE | 2020-08-28 07:54 | US_ITS ---
PROCEDURE: US THYROID CLINICAL INDICATION: ABN THYROID FUNCTION COMPARISON: No exams were available for comparison FINDINGS: Right lobe: 4.1 x 1.5 x 1 cm Left lobe: 3.6 x 1.4 x 1 cm Isthmus: 3 millimeters Additional findings: There is a 6 mm minimally complex nodule in the mid right thyroid lobe. There is a 8 mm mildly complex nodule in the lower right thyroid lobe and 1.2 cm complex nodule in the lower right thyroid lobe. In the left thyroid lobe there is a 6 mm cyst in the lower pole and 8 mm mildly complex nodule in the lower pole. IMPRESSION: Bilateral predominantly subcentimeter complex nodules and cysts in the thyroid gland as described above, for which repeat thyroid ultrasound in 6 months is recommended for close follow-up. Dictated by: Delroy Lopez MD 08/28/2020 09:17 Delroy Lopez MD in [place] 08/28/2020 09:17
== END ==
LOC: RAD 07:50
PROVIDERS: PCP Nurse Practitioner Family; Visit Provider Nurse Practitioner Family
DX: R94.5 Abnormal results of liver function studies (principal); R94.6 Abnormal results of thyroid function studies
CPT/HCPCS: 76536; 76700

== ENCOUNTER 2020-10-11 22:55 | Emergency (ER) | payer BC, SELFPAY ==
[2020-10-11 22:56] VITALS: BP 100/75; PULSE 91; RESP 16; TEMP 36.5; O2SAT 99; BMI 16.2
[2020-10-11 23:41] LABS: Microscopic, Urine URINE MICROSCOPIC (MICROSCOPIC)
[2020-10-11 23:44] LABS: Appearance,Urine CLEAR (Clear); Blood, Urine Negative (Negative); Color,Urine DK YELLOW (Yellow); Glucose,Urine (UA) Negative (Negative); Ketones,Urine Negative (Negative); Leukocyte Esterase,Urine Negative (Negative); Nitrate,Urine Negative (Negative); Protein,Urine 1+ (Negative); Specific Gravity, Urine >= 1.030 (1.005-1.030); Urobilinogen,Urine 0.2 EU/dl (0.2)
[2020-10-11 23:47] LABS: Bilirubin,Urine 1+ (Negative); Urine Pregnancy, HCG Qual. Negative (Negative)
[2020-10-11 23:58] LABS: RBC,Urine Occasional #/hpf (0-3); Squamous Epithelial Cell,Urine Occasional #/hpf (0-5)
[2020-10-11 23:59] LABS: Bacteria,Urine 1+ /lpf
[2020-10-12] LABS: Basophils % 0.4 % (0.1-2.0); Eosinophils % 0.3 % (0.1-12.0); Hematocrit 49.6 % (37.0-47.0); Hemoglobin 16.6 g/dL (12.2-16.2); Lymphocytes # 0.5 K/mm3 (0.7-4.5); Lymphocytes % 6.2 % (10-50); Mean Corpuscular HGB Conc 33.6 g/dL (31.8-35.4); Mean Corpuscular Hemoglobin 29.5 pg (27.0-31.2); Mean Platelet Volume 8.6 fl (7.4-10.4); Monocytes # 0.2 K/mm3 (0.1-1.0); Monocytes % 2.5 % (1.7-9.3); Neutrophils # 7.8 K/mm3 (1.8-7.8); Neutrophils % 90.6 % (37.0-80.0); Platelet Count 264 K/mm3 (142-424); Red Blood Count 5.63 M/mm3 (4.20-5.40); Red Cell Distribution Width 14.1 % (11.5-17.5); White Blood Count 8.6 K/mm3 (4.8-10.8)
[2020-10-12 00:01] LABS: MANUAL DIFFERENTIAL MANUAL DIFFERENTIAL (MANUAL DIFF)
[2020-10-12 00:06] LABS: Alanine Aminotransferase 27 U/L (12-78); Albumin Level 5.3 g/dl (3.5-5.0); Albumin/Globulin Ratio 1.7 (1.1-1.8); Alkaline Phosphatase 125 U/L (38-126); Aspartate Amino Transferase 36 U/L (14-36); Bilirubin,Total 0.8 mg/dl (0.2-1.3); Blood Urea Nitrogen 11 mg/dl (7-17); Calcium 9.4 mg/dl (8.4-10.2); Carbon Dioxide 25 mmol/L (22.0-30.0); Chloride 103 mmol/L (98-107); Creatinine Clearance Estimated 81 mL/min (50-200); Estimated Glomerular Filt Rate 106 ml/min (>60); GFR (African American) 128 ML/MIN (>60); Globulin 3.2 g/dL (1.3-3.2); Glucose 134 mg/dl (74-100); Lipase 45 U/L (23-300); Sodium 139 mmol/L (136-145); Total Protein,Serum 8.5 g/dl (6.3-8.2)
[2020-10-12 00:07] LABS: Coronavirus 19, PCR Not Detected (NotDetected); Influenza A, PCR Not Detected (NotDetected); Influenza B, PCR Not Detected (NotDetected)
[2020-10-12 00:25] LABS: Eosinophils % 2 % (0-3); Lymphocytes % 11 % (10-50); Monocytes % 6 % (2-9); Neutrophils % 81 % (42-76); Platelet Estimate Normal; RBC Morphology Normal; Total Cells Counted 100
--- NOTE | 2020-10-12 00:26 | HMH.EDGENADL ---
ED Disposition Clinical Impression: Nausea vomiting and diarrhea, Dehydration Disposition: Home, Self-Care Condition on Discharge: Fair Instructions: DI for Acute Abdominal Pain, Nausea and Vomiting-Adult Additional Instructions: You have been evaluated for nausea, vomiting, diarrhea. Please stay hydrated. Take Zofran for nausea. Follow-up with your primary care doctor. Return to the emergency department at once for any new or worsening symptoms, abdominal pain, uncontrolled vomiting, other concerns. Prescriptions: ondansetron HCL [Ondansetron 4mg tab*] 4 mg PO Q6 PRN #12 tab PRN Reason: Vomiting Transmission Status: Pending to [facility] ([place] Referrals: Alisa Casas [Primary Care Provider] - Time of Disposition: : - Critical Care Critical Care Time: No Attestation: On 10/11/20, the high probability of a clinically significant, sudden or life threatening deterioration of the following system(s) required my full and direct attention, intervention and personal management. The time I documented below is in addition to time spent performing reported procedures but includes the following listed in this critical care notation. Medical Decision Making - Medical Records Medical records reviewed: Yes: I reviewed the patient's medical records. - Jaswinder Inquiry Pt receiving controlled substance: No Vital Signs: 10/11/20 22:56 Temperature 97.7 F Temperature Source Oral Pulse Rate [Right] 91 H Respiratory Rate 16 Blood Pressure [Right Arm] 100/75 L Blood Pressure Mean [Right Arm] 83 02 Sat by Pulse Oximetry 99 - Lab Data Lab Results 10/11/20 23:37: Urine Color Dk yellow, Urine Appearance Clear, Urine pH 6.0, Ur Specific [place] >= 1.030, Urine Protein 1+, Urine Glucose (UA) Negative, Urine Ketones Negative, Urine Blood Negative, Urine Nitrate Negative, Urine Bilirubin 1+ A, Urine Urobilinogen 0.2, Ur Leukocyte Esterase Negative, Urine RBC Occasional, Urine WBC 3-5, Ur Squamous Epith Cells Occasional, Urine Bacteria 1+ 10/11/20 23:37: Urine HCG, Qual Negative 10/11/20 23:50: WBC 8.6, RBC 5.63 H, Hgb 16.6 H, Hct 49.6 H, MCV 88.0, MCH 29.5, MCHC 33.6, RDW 14.1, Plt Count 264, MPV 8.6, Neut % (Auto) 90.6 H, Lymph % (Auto) 6.2 L, [place] % (Auto) 2.5, Eos % (Auto) 0.3, Baso % (Auto) 0.4, Neut # (Auto) 7.8, Lymph # (Auto) 0.5 L, [place] # (Auto) 0.2, Eos # (Auto) 0.0, Baso # (Auto) 0.0, Total Counted 100, Neutrophils % (Manual) 81 H, Lymphocytes % (Manual) 11, Monocytes % (Manual) 6, Eosinophils % (Manual) 2, Platelet Estimate Normal, RBC Morphology Normal 10/11/20 23:50: Sodium 139, Potassium 4.0, Chloride 103, Carbon Dioxide 25, Anion Gap 15.0, BUN 11, Creatinine 0.70, Estimated Creat Clear 81, Estimated GFR 106, Est GFR ( Amer) 128, Glucose 134 H, Calcium 9.4, Total Bilirubin 0.8, AST 36, ALT 27, Alkaline Phosphatase 125, Total Protein 8.5 H, Albumin 5.3 H, Globulin 3.2, Albumin/Globulin Ratio 1.7, Lipase 45 10/11/20 23:55: SARS-CoV-2 (PCR) Not detected, Influenza A Untype (PCR) Not detected, Influenza Type B (PCR) Not detected Result diagrams: 10/11/20 23:50 10/11/20 23:50 Orders (Tests/Meds): ED MEDICATIONS Generic Name Dose Route Start Last Admin Trade Name Freq PRN Reason Stop Dose Admin Sodium Chloride 1,000 mls @ 999 mls/hr 10/12/20 00:30 10/12/20 00:41 Sod Chlor 0.9% 1000ml Bag IV 10/12/20 01:30 999 mls/hr .Q1H1M RENETTA Administration Discontinued Medications Generic Name Dose Route Start Last Admin Trade Name Freq PRN Reason Stop Dose Admin Ondansetron HCl 4 mg 10/12/20 00:30 10/12/20 00:41 Ondansetron 4mg/2ml Vial IV 10/12/20 00:31 4 mg ONCE ONE Administration Medical Decision Narrative: In summary this is a 19-year-old female presenting to the emergency department with nausea, vomiting, diarrhea. Patient clinically stable on arrival. Vital signs within normal limits, afebrile. Differential diagnoses include viral upper respiratory infection, COVID-19, dehydr
[2020-10-12 01:31] VITALS: BP 120/75; PULSE 87; RESP 16; TEMP 36.7; O2SAT 99
== END 2020-10-12 01:33 | disposition home or self-care (01) ==
PROVIDERS: Emergency Provider Emergency Medicine; PCP Nurse Practitioner Family
DX: E86.0 Dehydration (principal); F17.290 Nicotine dependence, other tobacco product, uncomplicated
CPT/HCPCS: 80053; 81001; 81025; 83690; 85007; 85025; 96365; 96375; 99283; J2405; U0003

== ENCOUNTER → 2021-06-05 09:32 | Outpatient (CLI) | payer BC, OTHER, SELFPAY ==
--- NOTE | 2021-06-05 09:37 | US_ITS ---
FINAL REPORT CLINICAL HISTORY: THYROID NODULE fu COMPARISON: 08/28/2020 FINDINGS: Sonographic images of the thyroid were obtained. The right lobe of the thyroid measures 1.0 x 4.1 x 1.8 cm. The left lobe of the thyroid measures 1.0 x 3.9 x 1.6 cm. Multiple small subcentimeter nodules are seen in both lobes of the thyroid. Some are solid and hypoechoic consistent with TI-RADS category 4 lesions. The largest nodule on the right measures 8 mm. The previously noted 1.1 cm in the right lobe of the thyroid is not seen on today's exam. All the nodules seen today are less than 1 cm. IMPRESSION: Bilateral thyroid nodules as above. No follow-up is required. Reviewed, Interpreted and Dictated by Mian Persaud MD Transcribed by Jamila Rodriguez Authenticated by Mian Persaud MD on 06/05/2021 12:57:34 PM [facility]
== END ==
PROVIDERS: PCP Nurse Practitioner Family; Visit Provider Nurse Practitioner Family
DX: E04.1 Nontoxic single thyroid nodule (principal)
CPT/HCPCS: 76536

== ENCOUNTER → 2022-02-09 12:36 | Outpatient (CLI) | payer BC, OTHER, SELFPAY ==
[2022-02-09 14:29] LABS: HCG,Quantitative 1155 mIU/ml (0-5.42)
== END ==
PROVIDERS: PCP Internal Medicine Adolescent Medicine; Visit Provider Nurse Practitioner Obstetrics & Gynecology
DX: N92.6 Irregular menstruation, unspecified (principal)
CPT/HCPCS: 36415; 84702

== ENCOUNTER → 2022-02-25 12:03 | Outpatient (CLI) | payer BC, OTHER, SELFPAY ==
[2022-02-25 13:33] LABS: HCG,Quantitative 15579 mIU/ml (0-5.42)
== END ==
PROVIDERS: PCP Nurse Practitioner Family; Visit Provider Nurse Practitioner Obstetrics & Gynecology
DX: N92.6 Irregular menstruation, unspecified (principal); Z32.00 Encounter for pregnancy test, result unknown
CPT/HCPCS: 36415; 84702

== ENCOUNTER → 2022-03-23 11:58 | Outpatient (CLI) | payer BC, OTHER, SELFPAY ==
[2022-03-23 13:34] LABS: Basophils # 0.1 K/mm3 (0-0.2); Basophils % 1.2 % (0.1-2.0); Eosinophils # 0.1 K/mm3 (0.0-0.4); Eosinophils % 1.2 % (0.1-12.0); Hematocrit 44.2 % (37.0-47.0); Hemoglobin 14.5 g/dL (12.2-16.2); Lymphocytes % 28.4 % (10-50); Mean Corpuscular HGB Conc 32.8 g/dL (31.8-35.4); Mean Corpuscular Volume 94.5 fl (81-99); Monocytes # 0.3 K/mm3 (0.1-1.0); Monocytes % 4.9 % (1.7-9.3); Neutrophils # 4.5 K/mm3 (1.8-7.8); Neutrophils % 64.4 % (37.0-80.0); Platelet Count 299 K/mm3 (142-424); Red Blood Count 4.68 M/mm3 (4.20-5.40); Red Cell Distribution Width 13.1 % (11.5-17.5)
[2022-03-23 13:53] LABS: Alanine Aminotransferase 20 U/L (12-78); Albumin Level 4.4 g/dl (3.5-5.0); Albumin/Globulin Ratio 1.7 (1.1-1.8); Alkaline Phosphatase 88 U/L (38-126); Anion Gap 13.4 mEq/L (5-15); Aspartate Amino Transferase 28 U/L (14-36); Bilirubin,Total 0.8 mg/dl (0.2-1.3); Blood Urea Nitrogen 6 mg/dl (7-17); Calcium 8.9 mg/dl (8.4-10.2); Carbon Dioxide 26 mmol/L (22.0-30.0); Chloride 102 mmol/L (98-107); Estimated Glomerular Filt Rate 153 ml/min (>60); GFR (African American) 185 ML/MIN (>60); Globulin 2.6 g/dL (1.3-3.2); Glucose 78 mg/dl (74-100); Potassium 4.4 mmoL/L (3.5-5.1); Sodium 137 mmol/L (136-145)
== END ==
PROVIDERS: PCP Nurse Practitioner Family; Visit Provider Nurse Practitioner Obstetrics & Gynecology
DX: O02.1 Missed abortion (principal)
CPT/HCPCS: 36415; 80053; 85025

== ENCOUNTER → 2022-04-23 11:13 | Outpatient (CLI) | payer BC, OTHER, SELFPAY ==
[2022-04-23 12:16] LABS: Basophils # 0.1 K/mm3 (0-0.2); Basophils % 1.9 % (0.1-2.0); Eosinophils # 0.1 K/mm3 (0.0-0.4); Eosinophils % 1.3 % (0.1-12.0); Hematocrit 45.3 % (37.0-47.0); Hemoglobin 14.8 g/dL (12.2-16.2); Lymphocytes # 2.1 K/mm3 (0.7-4.5); Lymphocytes % 38.2 % (10-50); Mean Corpuscular HGB Conc 32.7 g/dL (31.8-35.4); Mean Corpuscular Hemoglobin 30.9 pg (27.0-31.2); Mean Corpuscular Volume 94.5 fl (81-99); Monocytes # 0.3 K/mm3 (0.1-1.0); Monocytes % 5.4 % (1.7-9.3); Neutrophils # 2.8 K/mm3 (1.8-7.8); Neutrophils % 53.2 % (37.0-80.0); Platelet Count 284 K/mm3 (142-424); Red Blood Count 4.79 M/mm3 (4.20-5.40); Red Cell Distribution Width 12.8 % (11.5-17.5); White Blood Count 5.3 K/mm3 (4.8-10.8)
[2022-04-23 13:03] LABS: HCG,Quantitative 5 mIU/ml (0-5.42)
== END ==
PROVIDERS: PCP Nurse Practitioner Family; Visit Provider Nurse Practitioner Obstetrics & Gynecology
DX: Z34.90 Encounter for supervision of normal pregnancy, unspecified, unspecified trimester (principal); N92.6 Irregular menstruation, unspecified
CPT/HCPCS: 36415; 84702; 85025

== ENCOUNTER → 2022-04-28 11:03 | Outpatient (CLI) | payer BC, OTHER, SELFPAY ==
[2022-04-28 13:29] LABS: HCG,Quantitative < 2 mIU/ml (0-5.42)
== END ==
PROVIDERS: PCP Nurse Practitioner Family; Visit Provider Nurse Practitioner Obstetrics & Gynecology
DX: Z32.00 Encounter for pregnancy test, result unknown (principal)
CPT/HCPCS: 36415; 84702

== ENCOUNTER → 2022-05-18 11:11 | Outpatient (CLI) | payer BC, OTHER, SELFPAY ==
[2022-05-19 09:01] LABS: Progesterone 0.2 ng/mL (.)
== END ==
PROVIDERS: PCP Nurse Practitioner Family; Visit Provider Nurse Practitioner Obstetrics & Gynecology
DX: O03.9 Complete or unspecified spontaneous abortion without complication (principal)
CPT/HCPCS: 36415; 84144

== ENCOUNTER → 2022-05-20 08:51 | Outpatient (CLI) | payer BC, OTHER, SELFPAY ==
[2022-05-20 10:25] LABS: HCG,Quantitative < 2 mIU/ml (0-5.42)
[2022-05-21 08:20] LABS: Progesterone 0.2 ng/mL (.)
== END ==
PROVIDERS: PCP Nurse Practitioner Family; Visit Provider Nurse Practitioner Obstetrics & Gynecology
DX: N92.6 Irregular menstruation, unspecified (principal)
CPT/HCPCS: 36415; 84144; 84702

== ENCOUNTER → 2022-09-28 14:28 | Outpatient (CLI) | payer OTHER, SELFPAY ==
[2022-09-28 15:30] LABS: HCG,Quantitative < 2 mIU/ml (0-5.42)
[2022-09-30 12:08] LABS: Progesterone 3.8 ng/mL (.)
== END ==
PROVIDERS: PCP Nurse Practitioner Family; Visit Provider Nurse Practitioner Obstetrics & Gynecology
DX: Z32.00 Encounter for pregnancy test, result unknown (principal)
CPT/HCPCS: 36415; 84144; 84702

== ENCOUNTER → 2022-10-12 12:39 | Outpatient (CLI) | payer OTHER, SELFPAY ==
[2022-10-12 13:29] LABS: HCG,Quantitative 162 mIU/ml (0-5.42)
[2022-10-13 09:19] LABS: Progesterone 25.5 ng/mL (.)
== END ==
PROVIDERS: PCP Nurse Practitioner Family; Visit Provider Obstetrics & Gynecology
DX: Z32.01 Encounter for pregnancy test, result positive (principal)
CPT/HCPCS: 36415; 84144; 84702

== ENCOUNTER 2022-10-29 12:22 | Emergency (ER) | payer OTHER, SELFPAY ==
[2022-10-29 12:23] VITALS: BP 109/73; PULSE 84; RESP 16; TEMP 36.6; O2SAT 100; BMI 21.7
[2022-10-29 12:49] VITALS: BMI 21.7
[2022-10-29 12:53] LABS: Microscopic, Urine URINE MICROSCOPIC (MICROSCOPIC)
[2022-10-29 12:55] LABS: Appearance,Urine CLEAR (Clear); Blood, Urine Negative (Negative); Color,Urine YELLOW (Yellow); Glucose,Urine (UA) Negative (Negative); Ketones,Urine 3+ (Negative); Leukocyte Esterase,Urine Negative (Negative); Nitrate,Urine Negative (Negative); PH,Urine 5.5 (5.0-8.5); Protein,Urine TRACE (Negative); Specific Gravity, Urine >= 1.030 (1.005-1.030); Urobilinogen,Urine 0.2 EU/dl (0.2)
[2022-10-29 12:56] LABS: Urine Pregnancy, HCG Qual. Positive (Negative)
[2022-10-29 13:00] LABS: Bilirubin,Urine 1+ (Negative)
[2022-10-29 13:09] LABS: Bacteria,Urine Trace /lpf; Mucus,Urine Trace /lpf
[2022-10-29 13:13] LABS: Basophils % 0.3 % (0.1-2.0); Eosinophils # 0.1 K/mm3 (0.0-0.4); Eosinophils % 1.3 % (0.1-12.0); Hematocrit 43.4 % (37.0-47.0); Hemoglobin 14.3 g/dL (12.2-16.2); Lymphocytes # 1.5 K/mm3 (0.7-4.5); Mean Corpuscular Hemoglobin 30.3 pg (27.0-31.2); Mean Corpuscular Volume 91.7 fl (81-99); Mean Platelet Volume 9.1 fl (7.4-10.4); Monocytes # 0.3 K/mm3 (0.1-1.0); Monocytes % 3.1 % (1.7-9.3); Neutrophils # 6.6 K/mm3 (1.8-7.8); Neutrophils % 77.2 % (37.0-80.0); Platelet Count 273 K/mm3 (142-424); Red Blood Count 4.73 M/mm3 (4.20-5.40); Red Cell Distribution Width 13.2 % (11.5-17.5); White Blood Count 8.6 K/mm3 (4.8-10.8)
[2022-10-29 13:22] LABS: Alanine Aminotransferase 24 U/L (12-78); Albumin Level 4.5 g/dl (3.5-5.0); Albumin/Globulin Ratio 1.5 (1.1-1.8); Alkaline Phosphatase 65 U/L (38-126); Anion Gap 14.6 mEq/L (5-15); Aspartate Amino Transferase 30 U/L (14-36); Bilirubin,Total 1.2 mg/dl (0.2-1.3); Blood Urea Nitrogen 6 mg/dl (7-17); Carbon Dioxide 24 mmol/L (22.0-30.0); Chloride 103 mmol/L (98-107); Creatinine Clearance Estimated 144 mL/min (50-200); Estimated Glomerular Filt Rate 153 ml/min (>60); GFR (African American) 185 ML/MIN (>60); Glucose 89 mg/dl (74-100); Potassium 3.6 mmoL/L (3.5-5.1); Sodium 138 mmol/L (136-145); Total Protein,Serum 7.5 g/dl (6.3-8.2)
--- NOTE | 2022-10-29 13:31 | HMH.EDGENADL ---
Discharge Plan Disposition Patient Disposition: Home, Self-Care Condition: Good Prescriptions Prescriptions: New nitrofurantoin monohyd/m-cryst [Macrobid] 100 mg capsule 100 mg PO BID 5 Days Qty: 10 0RF Rx Instructions: must administer with a meal/food ondansetron 4 mg tablet,disintegrating 4 mg PO Q8H PRN (Reason: nausea and vomiting) 4 Days Qty: 12 0RF No Action sertraline 100 mg tablet 100 mg PO DAILY Patient Comments: TAKE 1 TABLET 1 TIME EACH DAY promethazine 25 mg tablet 25 mg PO TID PRN (Reason: nausea and vomiting) Qty: 30 1RF Referrals Follow up/Referrals: Alisa Casas [Primary Care Provider] - See instructions Activity Restrictions/Add. Instructions Additional Instructions/Restrictions: You were evaluated in the emergency department today. Please sweet pickled fruit maker your prescriptions at the pharmacy. Orally hydrate at home is much as possible. Follow-up outpatient with your [facility]. Please call them at the next 48 hours follow-up with your primary care provider as well. Return to the emergency department for new or worsening symptoms. Clinical Impressions Clinical Impression: Vomiting affecting , Asymptomatic bacteriuria Instructions Patient Instructions: DI for -- Discomforts and Remedies, DI for Nausea -- Adult Discharge ED Provider: Tena Pérez General Adult HPI General Chief complaint: Nausea/Vomiting/Diarrhea Stated complaint: early , vomiting Time Seen by Provider: 10/29/22 12:51 History of Present Illness HPI narrative: Patient is a 21-year-old female presenting with nausea and vomiting in the setting of positive test at home. Patient reports that she has had 2 previous pregnancies, 1 childbirth and 1 miscarriage. She states that her last menstrual period was 10/10/2022, and she took a test which was positive. She states she has had intractable nausea and vomiting for 2 days and has not been able to keep anything down. She called OB who said that they would see her in November, so she has not had ultrasound yet. She denies any fevers, chills, abdominal pain, cramping, abnormal vaginal discharge, vaginal bleeding, or other concerns. She is otherwise been well. Related Data Home Medications Medication Instructions Recorded Confirmed sertraline 100 mg tablet 100 mg PO DAILY Depression 03/23/22 06/15/22 Previous Rx's Medication Instructions Recorded promethazine 25 mg tablet 25 mg PO TID PRN nausea and 10/28/22 vomiting #30 tabs nitrofurantoin 100 mg PO BID 5 days #10 caps 10/29/22 monohydrate/macrocrystals 100 mg capsule (Macrobid) ondansetron 4 mg disintegrating 4 mg PO Q8H PRN nausea and 10/29/22 tablet vomiting 4 days #12 tabs Allergies Allergy/AdvReac Type Severity Reaction Status Date / Time No Known Allergies Allergy Verified 06/15/22 08:49 [facility] Disclaimer: The information contained in this section may have been updated after the patient was seen, as this information can be updated by other users. Medical History Depression History of COVID-19 Surgical History History of section History of surgery Family History Other No significant family history Social History Smoking Status: Current every day smoker tobacco type: e-cigarettes years smoked: 7 second hand exposure: No alcohol intake: former substance use type: marijuana current occupational status: unemployed Travel in the last 8 weeks: None household members: family housing: house ROS Obtained: Yes All systems reviewed & no additional complaints except as documented Physical Exam General General appearance: alert and in no apparent distress Head Head exam: atraumat
--- NOTE | 2022-10-29 13:47 | PC.NURSE ---
pt PO challenging per ER MD request
[2022-10-29 14:02] VITALS: BP 111/61; PULSE 68; RESP 16; TEMP 36.6; O2SAT 100
[2022-10-29 14:13] LABS: HCG,Quantitative 33420 mIU/ml (0-5.42)
== END 2022-10-29 14:04 | disposition home or self-care (01) ==
PROVIDERS: Emergency Provider Emergency Medicine; PCP Nurse Practitioner Family
DX: O21.9 Vomiting of pregnancy, unspecified (principal); O23.41 Unspecified infection of urinary tract in pregnancy, first trimester; O99.331 Smoking (tobacco) complicating pregnancy, first trimester; F17.290 Nicotine dependence, other tobacco product, uncomplicated; Z3A.00 Weeks of gestation of pregnancy not specified
CPT/HCPCS: 80053; 81001; 81025; 84702; 85025; 96361; 96374; 99285; J2405

== ENCOUNTER 2022-11-03 20:15 | Emergency (ER) | payer OTHER, SELFPAY ==
[2022-11-03 20:17] VITALS: BP 122/65; PULSE 98; RESP 16; TEMP 36.9; O2SAT 99; BMI 21.7
[2022-11-03 20:51] LABS: Microscopic, Urine URINE MICROSCOPIC (MICROSCOPIC)
[2022-11-03 20:55] LABS: Basophils % 0.3 % (0.1-2.0); Eosinophils # 0.1 K/mm3 (0.0-0.4); Eosinophils % 0.6 % (0.1-12.0); Hematocrit 48.3 % (37.0-47.0); Lymphocytes # 2.1 K/mm3 (0.7-4.5); Lymphocytes % 18.8 % (10-50); Mean Corpuscular HGB Conc 33.2 g/dL (31.8-35.4); Mean Corpuscular Hemoglobin 30.5 pg (27.0-31.2); Mean Corpuscular Volume 91.8 fl (81-99); Mean Platelet Volume 9.3 fl (7.4-10.4); Monocytes # 0.4 K/mm3 (0.1-1.0); Monocytes % 3.9 % (1.7-9.3); Neutrophils # 8.5 K/mm3 (1.8-7.8); Neutrophils % 76.4 % (37.0-80.0); Platelet Count 331 K/mm3 (142-424); Red Blood Count 5.26 M/mm3 (4.20-5.40); White Blood Count 11.1 K/mm3 (4.8-10.8)
--- NOTE | 2022-11-03 20:55 | HMH.EDGENADL ---
Discharge Plan Disposition Patient Disposition: Home, Self-Care Prescriptions Prescriptions: New metoclopramide HCl [Reglan] 10 mg tablet 10 mg PO Q6H PRN (Reason: nausea and vomiting) Qty: 20 0RF No Action sertraline 100 mg tablet 100 mg PO DAILY Patient Comments: TAKE 1 TABLET 1 TIME EACH DAY promethazine 25 mg tablet 25 mg PO TID PRN (Reason: nausea and vomiting) Qty: 30 1RF nitrofurantoin monohyd/m-cryst [Macrobid] 100 mg capsule 100 mg PO BID 5 Days Qty: 10 0RF Rx Instructions: must administer with a meal/food ondansetron 4 mg tablet,disintegrating 4 mg PO Q8H PRN (Reason: nausea and vomiting) 4 Days Qty: 12 0RF Referrals Follow up/Referrals: Alisa Casas [Primary Care Provider] - See instructions Activity Restrictions/Add. Instructions Additional Instructions/Restrictions: Call your family doctor to establish care for this visit to the emergency department and schedule follow-up within 48 hours to ensure improvement. If you have any worsening of your condition or any other concerning signs or symptoms, return to the emergency department or your primary care doctor for further evaluation. Reglan every 6 hours, be sure to drink plenty of electrolyte containing fluids. Clinical Impressions Clinical Impression: Hyperemesis gravidarum Instructions Patient Instructions: DI for Diarrhea and Traveler's Diarrhea -- Adult, DI for Diarrhea and Traveler's Diarrhea -- Child, DI for Nausea -- Adult, DI for Nausea -- Child Discharge ED Provider: Reece Marin [facility] Adult HPI General Chief complaint: Nausea/Vomiting/Diarrhea Stated complaint: vomiting Time Seen by Provider: 11/03/22 20:23 Mode of Arrival: Ambulatory Source of Information: Patient Limitations: No Limitations Description of Symptoms (Recalled from ER Triage Doc. by RN): pt reports 1 week of vomiting and generalized abd pain, reports was seen here a couple days ago for dehydration. reports she is around 8 weeks . History of Present Illness HPI narrative: Is a 21-year-old female who is currently 8 weeks based on last menstrual period presenting with vomiting. Patient states she was seen a couple days prior to arrival for vomiting. At that time, work-up was reportedly negative. Patient was given Zofran for home-going. She has been having nonbloody, nonbilious vomiting throughout the day, worse in the morning. No associated diarrhea. Patient feels that she is dehydrated with dry lips. Has been having associated abdominal pain in her epigastrium. Denies fevers or chills, cough, trauma, dysuria hematuria, diarrhea constipation, or any other concerns. Related Data Home Medications Medication Instructions Recorded Confirmed sertraline 100 mg tablet 100 mg PO DAILY Depression 03/23/22 06/15/22 Previous Rx's Medication Instructions Recorded promethazine 25 mg tablet 25 mg PO TID PRN nausea and 10/28/22 vomiting #30 tabs nitrofurantoin 100 mg PO BID 5 days #10 caps 10/29/22 monohydrate/macrocrystals 100 mg capsule (Macrobid) ondansetron 4 mg disintegrating 4 mg PO Q8H PRN nausea and 10/29/22 tablet vomiting 4 days #12 tabs metoclopramide HCl 10 mg tablet 10 mg PO Q6H PRN nausea and 11/03/22 (Reglan) vomiting #20 tabs Allergies Allergy/AdvReac Type Severity Reaction Status Date / Time No Known Allergies Allergy Verified 11/03/22 20:43 [facility] Disclaimer: The information contained in this section may have been updated after the patient was seen, as this information can be updated by other users. Medical History Depression History of COVID-19 Surgical History History of section History of surgery Family History Other No significant family history Social History (Reviewed 10/29/22 @ 17:23 by Tena
[2022-11-03 20:57] LABS: Appearance,Urine CLEAR (Clear); Blood, Urine TRACE-I (Negative); Color,Urine YELLOW (Yellow); Glucose,Urine (UA) Negative (Negative); Ketones,Urine 3+ (Negative); Leukocyte Esterase,Urine TRACE (Negative); Nitrate,Urine Negative (Negative); Protein,Urine Negative (Negative); Urobilinogen,Urine 0.2 EU/dl (0.2)
[2022-11-03 20:59] LABS: Alanine Aminotransferase 30 U/L (12-78); Albumin Level 5.4 g/dl (3.5-5.0); Albumin/Globulin Ratio 1.5 (1.1-1.8); Alkaline Phosphatase 81 U/L (38-126); Anion Gap 20.6 mEq/L (5-15); Aspartate Amino Transferase 31 U/L (14-36); Bilirubin,Total 1.4 mg/dl (0.2-1.3); Blood Urea Nitrogen 4 mg/dl (7-17); Calcium 9.7 mg/dl (8.4-10.2); Carbon Dioxide 22 mmol/L (22.0-30.0); Chloride 101 mmol/L (98-107); Creatinine Clearance Estimated 120 mL/min (50-200); Estimated Glomerular Filt Rate 124 ml/min (>60); GFR (African American) 150 ML/MIN (>60); Globulin 3.5 g/dL (1.3-3.2); Glucose 101 mg/dl (74-100); Lipase 35 U/L (23-300); Potassium 3.6 mmoL/L (3.5-5.1); Sodium 140 mmol/L (136-145); Total Protein,Serum 8.9 g/dl (6.3-8.2)
[2022-11-03 21:18] LABS: Bilirubin,Urine 1+ (Negative)
[2022-11-03 21:30] VITALS: BP 113/68; PULSE 80; RESP 20; O2SAT 100
[2022-11-03 21:48] LABS: RBC,Urine Occasional #/hpf (0-3); WBC,Urine Occasional #/hpf (0-3)
[2022-11-03 22:00] VITALS: BP 95/50; PULSE 68; RESP 18; O2SAT 98
[2022-11-03 22:19] LABS: HCG,Quantitative 78438 mIU/ml (0-5.42)
--- NOTE | 2022-11-03 23:36 | PC.NURSE ---
MD @ bedside perform bedside ultrasound
[2022-11-04] VITALS: BP 105/66; PULSE 80; RESP 18; TEMP 36.8; O2SAT 100
== END 2022-11-04 00:01 | disposition home or self-care (01) ==
PROVIDERS: Emergency Provider Emergency Medicine; PCP Nurse Practitioner Family
DX: O21.9 Vomiting of pregnancy, unspecified (principal); O26.891 Other specified pregnancy related conditions, first trimester; Z3A.08 8 weeks gestation of pregnancy; O99.341 Other mental disorders complicating pregnancy, first trimester; F32.A Depression, unspecified; R10.13 Epigastric pain
CPT/HCPCS: 80053; 81001; 83690; 84702; 85025; 96361; 96374; 99285

== ENCOUNTER → 2022-11-06 08:50 | Outpatient (CLI) | payer OTHER, SELFPAY ==
--- NOTE | 2022-11-06 08:51 | US_ITS ---
PROCEDURE: US OB <= 14 WEEKS FETUS CLINICAL INDICATION: dates/ and bleeding in early COMPARISON: US from 11/03/2022 FINDINGS: Transvaginal sonographic images of the pelvis were obtained. From her last menstrual period she is 8weeks 3days. An intrauterine gestational sac is present with a pole with a crown-rump length of 1.37cm correlating to gestational age of 7weeks 5days. heart tones are present with an FHR of 156bpm. Yolk sac is noted. The yolk sac measures 4.6mm. The right ovary is seen and appears normal. The right ovary measures 4.3 cm x 2.3 cm x 1.9 cm. Within the right ovary is a corpus luteum. The left ovary is seen and appears normal. The left ovary measures 3.6 cm x 1.9 cm x 1.6 cm. There is no fluid in the cul-de-sac. IMPRESSION: 1. Viable intrauterine gestation currently measuring 7 weeks and 5 days. 2. Due date from today's ultrasound is June 20, 2023. 3. There is a small subchorionic hemorrhage. Dictated by: Minh Isabel MD 11/07/2022 10:45 Minh Isabel MD in OV 11/07/2022 10:45
== END ==
PROVIDERS: PCP Nurse Practitioner Family; Visit Provider Obstetrics & Gynecology
DX: O20.9 Hemorrhage in early pregnancy, unspecified
CPT/HCPCS: 76801

== ENCOUNTER → 2022-11-24 11:40 | Outpatient (CLI) | payer OTHER, SELFPAY ==
[2022-11-24 12:14] LABS: Basophils % 0.3 % (0.1-2.0); Eosinophils # 0.1 K/mm3 (0.0-0.4); Eosinophils % 1.1 % (0.1-12.0); Hematocrit 44.8 % (37.0-47.0); Hemoglobin 14.9 g/dL (12.2-16.2); Lymphocytes # 1.7 K/mm3 (0.7-4.5); Lymphocytes % 22.9 % (10-50); Mean Corpuscular HGB Conc 33.2 g/dL (31.8-35.4); Mean Corpuscular Hemoglobin 29.9 pg (27.0-31.2); Mean Corpuscular Volume 90.3 fl (81-99); Mean Platelet Volume 8.8 fl (7.4-10.4); Monocytes # 0.3 K/mm3 (0.1-1.0); Neutrophils # 5.3 K/mm3 (1.8-7.8); Neutrophils % 71.8 % (37.0-80.0); Platelet Count 264 K/mm3 (142-424); Red Blood Count 4.96 M/mm3 (4.20-5.40); Red Cell Distribution Width 12.9 % (11.5-17.5); White Blood Count 7.4 K/mm3 (4.8-10.8)
[2022-11-25 12:05] LABS: HIV Screen 4th Generation wRfx Non Reactive (Non Reactive); Rubella Antibodies, IgG 1.63 index (Immune >0.99)
[2022-11-25 12:12] LABS: Rapid Plasma Reagin Ab Titer Non Reactive titer (NonRea<1:1)
[2022-11-30 12:36] LABS: Hepatitis B Surface Antigen Negative
[2022-11-30 12:37] LABS: Hepatitis C Antibody Non Reactive
== END ==
PROVIDERS: PCP Internal Medicine Adolescent Medicine; Visit Provider Obstetrics & Gynecology
DX: Z34.91 Encounter for supervision of normal pregnancy, unspecified, first trimester (principal); Z3A.10 10 weeks gestation of pregnancy
CPT/HCPCS: 36415; 85025; 86593; 86703; 86762; 86850; 87086; 87340; 87380; G0432

== ENCOUNTER 2022-12-02 11:23 | Emergency (ER) | payer OTHER, SELFPAY ==
[2022-12-02 11:40] VITALS: BP 119/81; PULSE 87; RESP 20; TEMP 36.8; O2SAT 99; BMI 19.6
[2022-12-02 12:00] VITALS: BP 112/81; PULSE 94; RESP 18; O2SAT 97
[2022-12-02 12:23] VITALS: BP 108/74; PULSE 94; RESP 20; TEMP 36.8; O2SAT 97
--- NOTE | 2022-12-02 12:23 | HMH.EDGENADL ---
Discharge Plan Disposition Patient Disposition: Home, Self-Care Prescriptions Prescriptions: No Action promethazine 25 mg tablet 25 mg PO TID PRN (Reason: nausea and vomiting) Qty: 30 1RF Referrals Follow up/Referrals: Mert Rivera MD [Primary Care Provider] - See instructions Activity Restrictions/Add. Instructions Additional Instructions/Restrictions: Your symptoms today are consistent with a threatened miscarriage. You had a single living urine consistent with dates. Your blood type was O+ from previous laboratory diagnostics therefore you do not need medication called RhoGAM. Please follow-up with her [employer] doctor within the next week and return to the emergency part with any significant worsening of bleeding passing clots etc. Further emergency testing or treatment is needed. Clinical Impressions Clinical Impression: Threatened miscarriage Discharge ED Provider: Melanie Desouza General Adult HPI General Chief complaint: Vaginal Bleeding Stated complaint: 11 weeks , bleeding Time Seen by Provider: 12/02/22 12:10 Mode of Arrival: Ambulatory Source of Information: Patient Limitations: No Limitations Description of Symptoms (Recalled from ER Triage Doc. by RN): pt to ed c/o vaginal bleeding that started this morning. pt states she is approx 11w . pt denies any abd pain. History of Present Illness HPI narrative: Patient is a G3, at 11 weeks gestational age presented today with vaginal bleeding that began this morning. She states she had a recent ultrasound that showed subchorionic hemorrhage. She denies any ongoing bleeding or passing of tissue at this point. She has had no significant abdominal pain right now. She has no loss of fluid no contractions she is asymptomatic at the moment. From old records her blood type is O+ and she has never had to have RhoGAM in the past. She has no urinary symptoms today. Related Data Previous Rx's Medication Instructions Recorded promethazine 25 mg tablet 25 mg PO TID PRN nausea and 11/24/22 vomiting #30 tabs Allergies Allergy/AdvReac Type Severity Reaction Status Date / Time No Known Allergies Allergy Verified 11/24/22 10:53 [facility] Disclaimer: The information contained in this section may have been updated after the patient was seen, as this information can be updated by other users. Medical History Depression History of COVID-19 Vomiting affecting Surgical History History of section History of surgery LUMP REMOVED FROM RIGHT BREAST Family History Other No significant family history Social History Smoking Status: Never smoker years smoked: 7 second hand exposure: No alcohol intake: former substance use type: marijuana current occupational status: unemployed Travel in the last 8 weeks: None household members: family housing: house ROS Obtained: Yes All systems reviewed & no additional complaints except as documented Physical Exam General General appearance: alert Respiratory Respiratory exam: Present normal lung sounds bilaterally; Absent respiratory distress Cardiovascular Cardiovascular exam: Present regular rate; Absent tachycardia Abdominal Exam Abdominal exam: Present soft; Absent distention or tenderness Neurological Exam Neurological exam: Present alert and oriented X3 Medical Decision Making Jaswinder Inquiry Pt receiving controlled substance: No Vital Signs: 12/02/22 11:40 12/02/22 12:00 Temperature 98.3 F Temperature Source Oral Pulse Rate 94 H Pulse Rate [Left Radial] 87 Respiratory Rate 20 18 Blood Pressure 112/81 Blood Pressure [Right Arm] 119/81 Blood Pressure Mean 89 Blood Pressure Mean [Right Arm] 93 02 Sat by
== END 2022-12-02 12:24 | disposition home or self-care (01) ==
PROVIDERS: Emergency Provider Student in an Organized Health Care Education/Training Program; PCP Internal Medicine Adolescent Medicine
DX: O20.0 Threatened abortion (principal); O99.341 Other mental disorders complicating pregnancy, first trimester; F32.A Depression, unspecified; Z3A.11 11 weeks gestation of pregnancy
CPT/HCPCS: 99284